=== PATIENT | female | born 1945 | race Caucasian/White ===

== ENCOUNTER 2016-08-13 09:23 | Observation (INO) ==
[2016-08-13] MEDS ORDERED: Aspirin 81 MG TAB.CHEW PO ONE (10:05)
--- NOTE | 2016-08-13 10:11 | Emergency Department Note ---
Disposition Clinical Impression: Coronary artery disease, Chest pain, Elevated lipase, Frail elderly, Diabetes, Hyperlipidemia, Hypertension, Cardiomegaly, History of artificial heart valve, Elevated INR Disposition: Admitted As Inpatient Referrals: Chelita Sweeney CNP [Primary Care Provider] - Forms: ED Satisfaction Letter General Adult HPI - General Chief complaint: ED Chest Pain Stated complaint: Chest Pain Time Seen by Provider: 08/13/16 09:32 Source: patient Limitations: no limitations - History of Present Illness HPI Narrative: 70-year-old female history of coronary artery disease status post CABG and cardiac valve replacement on Coumadin and reports the emergency department complaining of chest pain which began yesterday. There is no history of cough or fever. No history of bleeding abdominal pain or vomiting. She had a few episodes of diarrhea which been nonbloody. There is no history of syncope or trauma or leg pain or swelling. The patient has had no problem moving her arms or legs independently. There is no history of fever. No acute back pain. The patient reports she usually does not have chest pain. She described the chest pain midsternal while she was active yesterday. It came back today. The patient has had some anxiety but denies any depressive features or suicidality or homicidality. There is no history of rash on the chest. No upper respiratory symptoms. There is no history of confusion. Onset (ago): hour(s) Pain Scale: 1 - Related Data Allergies Allergy/AdvReac Type Severity Reaction Status Date / Time iodine Allergy Hives Verified 08/13/16 09:38 codeine AdvReac Nausea Verified 08/13/16 09:39 All systems ED: reviewed and negative except as stated. Past Medical History - Past Medical History Medical history: Reports: CHF, coronary artery disease, diabetes, hyperlipidemia , hypertension Psychiatric history: Reports: no psych history - Social History Smoking Status: Never smoker Smokeless Tobacco Status: No Alcohol use: Reports: none Drug use: Reports: none Physical Exam - General Limitations: no limitations General appearance: alert - Head Head exam: atraumatic, normocephalic, normal inspection - Eye Eye exam: Present: normal appearance, PERRL, EOMI. Absent: conjunctival injection, miosis, mydriasis - ENT ENT exam: normal exam, normal oropharynx, mucous membranes moist, TM's normal bilaterally, normal external ear exam - Neck Neck exam: Present: normal inspection, full ROM, trachea midline - Chest Chest inspection: Present: symmetric chest wall rise. Absent: tenderness - Respiratory Respiratory exam: Present: normal lung sounds bilaterally. Absent: respiratory distress - Cardiovascular Cardiovascular exam: Present: normal rhythm, clicks, other (Mechanical heart sounds noted) - Abdominal Exam Abdominal exam: Present: soft, Non-Tender. Absent: tenderness, distention, guarding, rebound, rigidity, pulsatile mass - Extremities Exam Extremities exam: Present: normal inspection, full ROM. Absent: tenderness, normal capillary refill, pedal edema, joint swelling, calf tenderness - Expanded Lower Extremity Exam Neurovascular/Tendon exam: Absent: motor deficit, sensory deficit, tendon deficit, extremity cold to touch - Back Exam Back exam: Present: normal inspection, full ROM. Absent: tenderness, CVA tenderness (R), CVA tenderness (L), vertebral tenderness - Neurological Exam Neurological exam: Present: alert, oriented X3, CN II-XII intact. Absent: motor sensory deficit - Psychiatric Psychiatric exam: Present: normal affect, normal mood - Skin Skin exam: Present: warm, dry, intact, normal color. Absent: rash, cyanosis, diaphoresis, erythema, pallor, mottled Course Vital Signs Temperature 97.6 F 08/13/16 09:28 Pulse Rate 72 08/13/16 09:28 Respiratory Rate 18 08/13/16 09:28 Blood Pressure 200/111 08/13/16 09:28 O2 Sat by Pulse Oximetry 99 08/13/16 09:28 Temperature 97.6 F 08/13/16 09:28 Pulse Rate 58 08/13/16 12:25 Respiratory Rate 18 08/13/16 12:25 Blood Pressure 139/67 08/13/16 12:25 O2 Sat by Pulse Oximetry 98 08/13/16 12:25 Oxygen Delivery Oxygen Delivery Room Air Medical Decision Making - [facility] Narrative Medical decision making narrative: The patient is elderly, she has a history of coronary artery disease, valve replacement, she is anticoagulated, has a history of diabetes, hypertension, and hyperlipidemia and is experiencing chest pain. The patient was given aspirin as well. She does have a slightly elevated lipase the 300 range, but she denies abdominal pain. As a precaution a CT abdomen and pelvis was ordered to evaluate further. Given the patient's complaints and her significant risk factors for acute coronary syndrome, I think the patient should be admitted to the hospital and evaluated further. I reviewed the case with the hospitalist on -call who has accepted the patient to their care. The patient denies need for pain medication and appears to be pain free at this time. - Lab Data Lab results reviewed: Yes I reviewed the patient's lab results. Result diagrams: 08/13/16 09:54 08/13/16 09:54 Lab Results 08/13/16 08/13/16 08/13/16 Range/Units 09:54 09:54 09:54 WBC 7.9 (4.3-11.1) K/mcL RBC 4.80 (3.82-4.97) M/mcL Hgb 13.0 (11.5-15.4) g/dL Hct 41.3 (35.3-44.9) % MCV 86.0 (83.0-100.0) fL MCH 27.1 L (28.0-33.3) pg MCHC 31.5 L (31.6-35.5) g/dL RDW 15.0 H (11.5-14.5) % Plt Count 147 (140-400) K/mcL MPV 12.2 (9.4-12.4) fL Immature Gran % 0.4 (0-4) % Seg Neutrophils % 71.9 % Lymphocytes % 18.0 % Monocytes % 7.1 % Eosinophils % 2.1 % Basophils % 0.5 % Neutrophils # 5.7 (1.6-8.9) K/mcL Lymphocytes # 1.4 (0.6-4.6) K/mcL Monocytes # 0.6 (0.0-1.3) K/mcL Eosinophils # 0.2 (0.0-0.6) K/mcL Basophils # 0.0 (0.0-0.2) K/mcL PT 21.8 H (9.4-12.1) Seconds INR 2.0 APTT 49.7 H (26.0-36.0) Seconds Sodium 140 (136-145) mEq/L Potassium 4.2 (3.5-4.5) mEq/L Chloride 108 (98-109) mEq/L Carbon Dioxide 22 (19-29) mEq/L BUN 23 H (7-20) mg/dL Creatinine 0.85 (0.57-1.11) mg/dL Est GFR ( Amer) > 60 (> 60) Est GFR (Non-Af Amer) > 60 (> 60) BUN/Creatinine Ratio 27 H (6-26) Glucose 121 H (70-99) mg/dL Calculated Osmolality 295 (280-300) Lactic Acid (0.5-2.2) mmol/L Calcium 9.9 (8.6-10.8) mg/dL Total Bilirubin 0.6 (0.2-1.2) mg/dL Direct Bilirubin 0.2 (0.0-0.5) mg/dL Indirect Bilirubin 0.4 (0.0-1.2) mg/dL AST 17 (5-34) Units/L ALT 9 (0-55) Units/L Alkaline Phosphatase 89 (38-126) Units/L Troponin I (0-0.03) ng/mL C-Reactive Protein 0 (Less than 5) mg/L B-Natriuretic Peptide (0-100) pg/mL Serum Total Protein 7.2 (6.0-8.3) g/dL Albumin 3.9 (3.5-5.0) g/dL Globulin 3.3 (2.4-3.5) g/dL Albumin/Globulin Ratio 1.2 (1.1-2.2) Lipase 323 H (8-78) Units/L 08/13/16 08/13/16 08/13/16 Range/Units 09:54 09:54 10:51 WBC (4.3-11.1) K/mcL RBC (3.82-4.97) M/mcL Hgb (11.5-15.4) g/dL Hct (35.3-44.9) % MCV (83.0-100.0) fL MCH (28.0-33.3) pg MCHC (31.6-35.5) g/dL RDW (11.5-14.5) % Plt Count (140-400) K/mcL MPV (9.4-12.4) fL Immature Gran % (0-4) % Seg Neutrophils % % Lymphocytes % % Monocytes % % Eosinophils % % Basophils % % Neutrophils # (1.6-8.9) K/mcL Lymphocytes # (0.6-4.6) K/mcL Monocytes # (0.0-1.3) K/mcL Eosinophils # (0.0-0.6) K/mcL Basophils # (0.0-0.2) K/mcL PT (9.4-12.1) Seconds INR APTT (26.0-36.0) Seconds Sodium (136-145) mEq/L Potassium (3.5-4.5) mEq/L Chloride (98-109) mEq/L Carbon Dioxide (19-29) mEq/L BUN (7-20) mg/dL Creatinine (0.57-1.11) mg/dL Est GFR ( Amer) (> 60) Est GFR (Non-Af Amer) (> 60) BUN/Creatinine Ratio (6-26) Glucose (70-99) mg/dL Calculated Osmolality (280-300) Lactic Acid 1.1 (0.5-2.2) mmol/L Calcium (8.6-10.8) mg/dL Total Bilirubin (0.2-1.2) mg/dL Direct Bilirubin (0.0-0.5) mg/dL Indirect Bilirubin (0.0-1.2) mg/dL AST (5-34) Units/L ALT (0-55) Units/L Alkaline Phosphatase (38-126) Units/L Troponin I 0.01 (0-0.03) ng/mL C-Reactive Protein (Less than 5) mg/L B-Natriuretic Peptide 66 (0-100) pg/mL Serum Total Protein (6.0-8.3) g/dL Albumin (3.5-5.0) g/dL Globulin (2.4-3.5) g/dL Albumin/Globulin Ratio (1.1-2.2) Lipase (8-78) Units/L - Radiology Data Radiology results reviewed: Yes I reviewed the patient's radiology results.
[2016-08-13 10:14] LABS: Basophils % 0.5 %; Eosinophils # 0.2 K/mcL (0.0-0.6); Eosinophils % 2.1 %; Hematocrit 41.3 % (35.3-44.9); Immature Granulocytes % 0.4 % (0-4); Lymphocytes # 1.4 K/mcL (0.6-4.6); Mean Corpuscular HGB Conc 31.5 g/dL (31.6-35.5); Mean Corpuscular Hemoglobin 27.1 pg (28.0-33.3); Mean Platelet Volume 12.2 fL (9.4-12.4); Monocytes # 0.6 K/mcL (0.0-1.3); Monocytes % 7.1 %; Neutrophils # 5.7 K/mcL (1.6-8.9); Platelet Count 147 K/mcL (140-400); Segmented Neutrophils % 71.9 %
[2016-08-13 10:20] LABS: Prothrombin Time 21.8 Seconds (9.4-12.1)
[2016-08-13 10:22] LABS: Activated Partial Thrombo Time 49.7 Seconds (26.0-36.0)
[2016-08-13 10:27] LABS: Alanine Aminotransferase 9 Units/L (0-55); Albumin 3.9 g/dL (3.5-5.0); Albumin/Globulin Ratio 1.2 (1.1-2.2); Alkaline Phosphatase 89 Units/L (38-126); Aspartate Amino Transferase 17 Units/L (5-34); BUN/Creatinine Ratio 27 (6-26); Bilirubin,Direct 0.2 mg/dL (0.0-0.5); Bilirubin,Indirect 0.4 mg/dL (0.0-1.2); Bilirubin,Total 0.6 mg/dL (0.2-1.2); Blood Urea Nitrogen 23 mg/dL (7-20); C-Reactive Protein 0 mg/L (Less than 5); Calcium 9.9 mg/dL (8.6-10.8); Carbon Dioxide 22 mEq/L (19-29); Chloride 108 mEq/L (98-109); Globulin 3.3 g/dL (2.4-3.5); Glucose 121 mg/dL (70-99); Lipase 323 Units/L (8-78); Osmolality,Calculated 295 (280-300); Potassium 4.2 mEq/L (3.5-4.5); Sodium 140 mEq/L (136-145); Total Protein 7.2 g/dL (6.0-8.3); eGFR For African Americans > 60 (> 60); eGFR For Non-African Americans > 60 (> 60)
[2016-08-13] MEDS ORDERED: Naloxone 0.4 MG/ML INJ IVP PRN (14:32)
[2016-08-13] MEDS ORDERED: Nitroglycerin 0.4 MG TAB.SUBL SL PRN (14:34)
[2016-08-13] MEDS ORDERED: D5% in Water 1,000 ML IV PRN (14:35)
[2016-08-13] MEDS ORDERED: Dextrose Gel 15 GM PO PRN ×2 (14:35)
[2016-08-13] MEDS ORDERED: *HR* Dextrose 50 % in Water (Syg) 50 ML SYRINGE IVP PRN (14:35)
--- NOTE | 2016-08-13 14:44 | Internal Med History&Physical ---
Date of Encounter: 08/13/16 Time of Encounter: 14:00 Assessment and Plan (1) Chest pain Current visit: Yes Status: Acute -Given cardiac history will admit for observation to rule out ACS -given clinical presentation, concern for unstable angina. Consider cardiology eval if symptoms persist -trend serial TNI and EKG -EKG shows sinus rhythm with 61bpm with LVH however no prior EKG available on records for comparison -nitroglycerin prn chest pain -nuclear stress test in am -if nuclear stress test abnormal, consider cardiology eval -NPO after midnight for nuclear stress test in am Qualifiers: Chest pain type: unspecified Qualified Code(s): R07.9 - Chest pain, unspecified (2) On anticoagulant therapy Current visit: Yes Status: Chronic -ON coumadin for mechanical aortic valve -continue home coumadin dosing -monitor daily INR (goal INR:2-3) (3) Aortic valve replaced Current visit: Yes Status: Chronic continue home anticoagulation (4) CAD (coronary artery disease) Current visit: Yes Status: Acute Given current clinical presentation, will rule out ACS however concern for unstable Angina Consider cardiology eval if symptoms persist continue home medications Qualifiers: Coronary Disease-Associated Artery/Lesion type: unspecified vessel or lesion type [place] vs. transplanted heart: [place] heart Associated angina: angina presence unspecified Qualified Code(s): I25.10 - Atherosclerotic heart disease of [place] coronary artery without angina pectoris (5) Hypertension Current visit: Yes Status: Chronic BP within acceptable range continue home medications Qualifiers: Hypertension type: essential hypertension Qualified Code(s): I10 - Essential (primary) hypertension (6) Hyperlipidemia Current visit: Yes Status: Chronic continue home medications f/u lipid panel Qualifiers: Hyperlipidemia type: unspecified Qualified Code(s): E78.5 - Hyperlipidemia , unspecified (7) Diabetes mellitus Current visit: Yes Status: Chronic -will hold oral antihyperglycemic agents at this time -f/u HbA1C -started low dose sliding scale insulin algorithm -monitor fingerstick and blood glucose Qualifiers: Diabetes mellitus type: type 2 Diabetes mellitus complication status: with unspecified complications Diabetes mellitus technician terminal and repeater insulin use: without fpc use Qualified Code(s): E11.8 - Type 2 diabetes mellitus with unspecified complications (8) DVT prophylaxis Current visit: Yes Status: Acute anticoagulated with Coumadin Internal Medicine - H&P: HPI Chief complaint: chest pain Admitted From: Home Plans for Post Hospital Care: Home History of present illness: Ms. Horvath is a 70 year old female with PMH of CAD, s/p CABG x 2, s/p aortic valve replacement (mechanical valve, on anticoagulation), HTN, HLD, DM who presents to the ER for evaluation of chest pain x 2 days. 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 Initially she used to experience chest discomfort and shortness of breath with exertion, however since yesterday she has had midsternal chest pain with radiation to the left arm that has persisted despite rest. She states she has not seen a bag sealer since 2007 and had all her cardiac work up done at [facility]. She is currently trying to get a cardiology referral from her PCP at [facility]. At this time, patient is resting comfortably in bed and denies any chest pain or shortness of breath. Denies any headache, palpitations, abd pain, n/v, fever, or chills. Past Med Surg Social Fam HX - Past Medical History Medical history: CHF, coronary artery disease, diabetes, hyperlipidemia, hypertension Psychiatric history: no psych history - Social History Smoking Status: Never smoker Smokeless Tobacco Status: No Alcohol use: none Drug use: none Internal Medicine - H&P: Meds Amlodipine Besylate 2.5 mg PO DAILY 08/13/16 [History] Atorvastatin Calcium [Lipitor] 20 mg PO DAILY 08/13/16 [History] Metformin HCl [Glucophage] 1,000 mg PO BID 08/13/16 [History] Potassium Chloride [K-Tab ER] 20 meq PO BID 08/13/16 [History] Valsartan/Hydrochlorothiazide [Diovan Hct 160-25 mg Tablet] 1 tab PO DAILY 08/13 [History] Warfarin [Coumadin] 1 mg PO DAILY 08/13/16 [History] Allergies iodine Allergy (Verified 08/13/16 09:38) Hives codeine Adverse Reaction (Verified 08/13/16 09:39) Nausea All Systems PM: A 10-system review of systems was performed and is negative for pertinent findings except as documented above in the HPI. - Constitutional Constitutional: as per HPI - Constitutional Vitals: Temp Pulse Resp BP Pulse Ox 97.6 F 58 18 139/67 98 08/13/16 09:28 08/13/16 12:25 08/13/16 12:59 08/13/16 12:59 08/13/16 12:25 General appearance: Present: cooperative, A&O X 3, pleasant, no acute distress, answers questions appropriately - Head Head exam: Present: atraumatic, normocephalic - Eye Eye exam: Present: normal appearance, conjuntiva pink, sclera anicteric - Respiratory Respiratory exam: Present: CTAB, respiratory distress. Absent: wheezes - Cardiovascular Cardiovascular exam: Present: clicks (mechanical valve click), RRR, +S1, +S2 - GI/Abdominal GI/Abdominal exam: Present: normal bowel sounds, soft. Absent: distended, tenderness - Extremities Exam Extremities exam: Present: warm, radial pulses palpable and symetrical. Absent : calf tenderness, pedal edema, tenderness - Neurological Exam Neurological exam: Present: alert, oriented X3, no focal deficits - Psychiatric Psychiatric exam: Present: normal affect, normal mood Internal Med - H&P Results - Labs CBC & Chem 7: 08/13/16 09:54 08/13/16 09:54
[2016-08-13] MEDS ORDERED: *HR* Warfarin 1 MG TABLET PO SCH (18:00)
[2016-08-13] MEDS: Insulin LISPRO 300 UNITS/3 ML VIAL SQ SCH (18:18)
[2016-08-13] MEDS ORDERED: Insulin LISPRO 300 UNITS/3 ML VIAL SQ SCH (21:00)
[2016-08-14] MEDS ORDERED: Regadenoson 0.4 MG/5 ML SYRINGE IVP ONE (06:09)
[2016-08-14 06:15] LABS: INR 2.3; Prothrombin Time 25.4 Seconds (9.4-12.1)
[2016-08-14 06:17] LABS: Basophils # 0.1 K/mcL (0.0-0.2); Basophils % 0.7 %; Eosinophils # 0.3 K/mcL (0.0-0.6); Eosinophils % 3.5 %; Hematocrit 38.1 % (35.3-44.9); Hemoglobin 12.2 g/dL (11.5-15.4); Immature Granulocytes % 0.3 % (0-4); Lymphocytes # 1.9 K/mcL (0.6-4.6); Lymphocytes % 26.8 %; Mean Corpuscular Hemoglobin 27.4 pg (28.0-33.3); Mean Corpuscular Volume 85.4 fL (83.0-100.0); Mean Platelet Volume 12.8 fL (9.4-12.4); Monocytes # 0.7 K/mcL (0.0-1.3); Monocytes % 9.7 %; Neutrophils # 4.3 K/mcL (1.6-8.9); Platelet Count 139 K/mcL (140-400); Red Blood Count 4.46 M/mcL (3.82-4.97); Red Cell Distribution Width 15.2 % (11.5-14.5)
[2016-08-14 06:35] LABS: BUN/Creatinine Ratio 24 (6-26); Blood Urea Nitrogen 19 mg/dL (7-20); Calcium 9.3 mg/dL (8.6-10.8); Carbon Dioxide 25 mEq/L (19-29); Chloride 107 mEq/L (98-109); Chol/HDL Ratio 2.6 (0-4.9); Cholesterol 163 mg/dL (< 200); Glucose 83 mg/dL (70-99); HDL Cholesterol 63 mg/dL (40-59); LDL Cholesterol,Calculated 81 mg/dL (0-99); Magnesium 1.4 mg/dL (1.6-2.6); Osmolality,Calculated 293 (280-300); Sodium 141 mEq/L (136-145); Triglycerides 93 mg/dL (< 150); eGFR For African Americans > 60 (> 60); eGFR For Non-African Americans > 60 (> 60)
[2016-08-14] MEDS ORDERED: amLODIPine 5 MG TABLET PO SCH (09:00)
[2016-08-14] MEDS ORDERED: Valsartan 160 MG TABLET PO SCH (09:00)
[2016-08-14] MEDS ORDERED: hydroCHLOROthiazide 25 MG TABLET PO SCH (09:00)
[2016-08-14 11:14] VITALS: BP 118/67
--- NOTE | 2016-08-14 11:57 | Nuclear Medicine Stress Report ---
Regadenoson Nuclear Stress Name: Valeria Horvath Date of Study: 08/14/2016 Date: 1945 Ht: 61.0 in Medical Record#: [id number] Age: 70 Wt: 130.0 lb Gender: Female Order #: [id number] Location: [facility] Room: [facility] Supervising Provider: Agustin Aranda CNP Reading Physician: Norbert Jackson DO, FACJann, BJ HIGGINS Ordering Physician: Alyssa Belcher CNP Primary Care Physician: Chelita Sweeney CNP Stress Technologist: Delmy Nelson COATING AND BAKING OPERATOR, CCT Mixer Whipped Topping: Felipe Patton Indications: Chest pain Impression: Pharmacologic stress ECG is non-diagnostic for ischemia due to baseline ST-T changes and submaximal HR. Gated EF = 64%. Perfusion imaging was negative for ischemia or infarct. History: Hypertension Diabetes Hypercholesteremia History of Coronary Artery Bypass Surgery Stress Test Summary: Stress Test Type: Pharmacologic Regadenoson 0.4mg/5ml given IV Baseline Information: Initial Heart Rate: 80 Blood Pressure: 138/80 Stress Information: Test Terminated Due to (primary): As per protocol Maximum Blood Pressure: 166/80 Maximum Heart Rate: 92 Percent Maximum Heart Rate Achieved: 62 Double Product: [id number] METS Reached: 1 Symptoms: No chest symptoms Nuclear Summary: SPECT myocardial perfusion imaging using Tc99m Sestamibi given intravenously was performed at rest and following cardiac stress testing. The resting images were obtained following initial dose of 11.7 mCi. Following stress an additional dose of 33 mCi was given at peak exercise or 30 seconds post regadenoson infusion. Medication Given: Time Medication Dose Units Route Findings: Stress Note * Resting ECG demonstrated normal sinus rhythm, incomplete RBBB, and ST-T changes. * No baseline arrhythmias were noted. * Pharmacologic stress ECG is non-diagnostic for ischemia due to baseline ST-T changes and submaximal HR. * No arrhythmias were noted during stress. * Patient had no chest pain during stress. * Normal hemodynamic responses to pharmacologic stress. Study Quality * Study quality is average. Gated EF % * Gated EF = 64%. Left Ventricle * The left ventricle is not dilated. LVEDV = 88 mL. NORMALS * Normal wall motion. * Normal segmental perfusion in rest. * Normal segmental perfusion in stress. TID * No evidence of transient ischemic dilatation. TID ratio = 0.81. Lung Uptake * There is no evidence of increase lung uptake. Updated by Norbert Jackson DO, FACJann, GISELA, BJ on 08/14/2016 11:49:34 AM electronically signed on 08/14/2016 11:52:34 AM with status of Final
[2016-08-14] MEDS: Insulin LISPRO 300 UNITS/3 ML VIAL SQ SCH ×2 (11:59→12:07)
--- NOTE | 2016-08-14 15:38 | Discharge Summary ---
Date of Encounter: 08/14/16 Time of Encounter: 14:30 - Discharge Diagnosis (1) Chest pain Priority: Primary Status: Resolved Comments: Patient denied chest pain on day of discharge. Chest x-ray negative. Troponins negative. Stress test negative for ischemia or infarct. ACS ruled out. (2) Coronary artery disease Priority: Secondary Status: Chronic (3) DVT prophylaxis Priority: Primary Status: Acute Comments: Therapeutic on Coumadin, INR 2.3 (4) Elevated lipase Priority: Primary Status: Resolved Comments: Likely incidental finding, abdominal pelvic CT negative for acute processes. Patient denied abdominal pain throughout this admission and was able to tolerate a regular diet. (5) History of artificial heart valve Priority: Secondary Status: Chronic (6) Hyperlipidemia Priority: Secondary Status: Chronic Comments: Lipid panel unremarkable, recommend low-cholesterol diet and continuing her statin Qualifiers: Hyperlipidemia type: unspecified Qualified Code(s): E78.5 - Hyperlipidemia , unspecified (7) Hypertension Priority: Secondary Status: Chronic Comments: Controlled with the resumption of her regular home medications. Recommend daily blood pressure checks at home, keeping a log, and following up outpatient. (8) Diabetes mellitus Priority: Secondary Status: Chronic Comments: Controlled at home with an A1c of 6.0%. Recommend continued follow up outpatient. Qualifiers: Diabetes mellitus type: type 2 Diabetes mellitus complication status: with unspecified complications Diabetes mellitus ferry terminal supervisor insulin use: without ferry terminal supervisor use Qualified Code(s): E11.8 - Type 2 diabetes mellitus with unspecified complications (9) On anticoagulant therapy Priority: Secondary Status: Chronic - Discharge Medications Home Medications: Amlodipine Besylate 2.5 mg PO DAILY 08/13/16 [History] Atorvastatin Calcium [Lipitor] 20 mg PO DAILY 08/13/16 [History] Metformin HCl [Glucophage] 1,000 mg PO BID 08/13/16 [History] Potassium Chloride [K-Tab ER] 20 meq PO BID 08/13/16 [History] Valsartan/Hydrochlorothiazide [Diovan Hct 160-25 mg Tablet] 1 tab PO DAILY 08/13 [History] Warfarin [Coumadin] 1 mg PO DAILY 08/13/16 [History] Allergies/Adverse Reactions: Allergies iodine Allergy (Verified 08/13/16 09:38) Hives codeine Adverse Reaction (Verified 08/13/16 09:39) Nausea Procedures/tests Complete & Pending: Procedures Performed prior 72 hours Category Date Time Status NM luis perf SPECT multi [NM] Routine Exams 08/13/16 14:35 Taken SP pharm nuclear stress Routine Y 08/14/16 07:35 Completed Date of admission: 08/13/16 12:48 Primary care physician: Chelita Sweeney CNP Consults: 08/13/16 15:21 Consult to Showroom Sales Consultant [CONS] Routine Reason for SW Consult: financial concerns Discharging clinician: Alyssa Belcher Anticipated date of discharge: 08/14/16 - Patient Status Disposition: Home, Self-Care Condition: Good Functional capacity at discharge: independent ambulation Overall status at discharge: patient is back to baseline - Discharge Instructions Follow Up With: Chelita Sweeney CNP [Primary Care Provider] - 08/21/16 1:00 pm Additional Instructions: Follow-up with primary care provider as scheduled - Diet and Activity Activity: increase activity as tolerated Diet: diabetic diet, low fat, low cholesterol, low salt diet Hospital course: Ms. Horvath is a 70 year old female with past medical history of CAD status post CABG 2, status post aortic valve replacement mechanical valve on Coumadin, hypertension, hyperlipidemia, diabetes. Patient presented to the emergency department chief complaint chest pain 2 days. Patient stating pain was located midsternally and radiated to her left arm and persisted despite rest. Workup in the emergency department unremarkable except for an elevated lipase. Chest x-ray negative. Abdominal pelvic CT negative. Patient was admitted to the hospitalist service for further evaluation and management. Patient continued to deny pain throughout this admission. She denied abdominal pain. Repeat lipase normal, suspect lab error as there were no clinical signs of pancreatitis or acute abdominal processes. Hypertension was noted but patient became normotensive after the resumption of her regular home medications. Troponins negative. Stress test negative for ischemia or infarct. Acute coronary syndrome ruled out. She was discharged home in stable condition with close outpatient follow-up recommended. ITS Impressions Chest X-Ray 08/13/16 10:06 IMPRESSION: 1. No active pulmonary disease. 2. Cardiomegaly without overt failure. D/ / Bert Davis MD / Bert Davis MD Interpreting Provider: Bert Davis MD Abdomen/Pelvis CT 08/13/16 12:06 IMPRESSION: No radiologic findings to suggest acute pancreatitis. Atherosclerosis. Cholelithiasis without evidence of acute cholecystitis. D/ / Jessica Aragon MD / Jessica Aragon MD Interpreting Provider: Jessica Aragon MD Nuclear stress test impression: Pharmacologic stress ECG is nondiagnostic for ischemia due to baseline ST-T wave changes and submaximal heart rate. Gated ejection fraction equals 64%. Perfusion imaging was negative for ischemia or infarct. - Time Spent with Patient Total time spent providing and/or coordinating discharge services: - Constitutional Vitals: Temp Pulse Resp BP Pulse Ox 98.0 F 63 16 118/67 94 L 08/14/16 11:08 08/14/16 11:08 08/14/16 11:08 08/14/16 11:08 08/14/16 11:08 General appearance: Present: cooperative, A&O X 3, pleasant, no acute distress, answers questions appropriately - Head Head exam: Present: atraumatic, normocephalic - Eye Eye exam: Present: PERRL, conjuntiva pink, sclera anicteric Pupils: Present: PERRL - Neck Neck exam general surgery: Present: supple, trachea midline. Absent: lymphadenopathy - Respiratory Respiratory exam: Present: CTAB. Absent: accessory muscle use, rales, respiratory distress, rhonchi, wheezes - Cardiovascular Cardiovascular exam: Present: clicks, RRR, +S1, +S2. Absent: diastolic murmur, gallop, rubs, systolic murmur - GI/Abdominal GI/Abdominal exam: Present: normal bowel sounds, soft, no peritoneal signs. Absent: distended, tenderness - Extremities Exam Extremities exam: Present: warm, radial pulses palpable and symetrical. Absent : calf tenderness, cyanotic, pedal edema - Neurological Exam Neurological exam: Present: alert, CN II-XII intact, oriented X3, no focal deficits, strengths equal and symetr throughout. Absent: pronater drift, facial droop, speech deficit - Skin Skin exam: Present: dry, intact, normal color, warm
[2016-08-14] MEDS ORDERED: *HR* Warfarin 1 MG TABLET PO SCH (18:00)
--- NOTE | 2016-08-17 12:56 | Electrocardiograph Report ---
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
== END 2016-08-14 17:17 | disposition home or self-care (01) ==
LOC: EMEROO 09:23 → 3BNU 09:23
PROVIDERS: ADMIT Internal Medicine; ATTEND Nurse Practitioner Family

== ENCOUNTER 2020-03-15 22:08 | Inpatient (IN) ==
[2020-03-15] MEDS ORDERED: Aspirin 81 MG TAB.CHEW PO ONE (22:19)
[2020-03-15 22:58] LABS: Bilirubin,Urine Negative (Negative); Blood,Urine Negative (Negative); Clarity,Urine Clear (Clear); Color,Urine Colorless (Yellow); Glucose,Urine (UA) Normal (Normal); Ketones,Urine Negative (Negative); Leukocyte Esterase,Urine Negative (Negative); Nitrite,Urine Negative (Negative); Protein,Urine 30 mg/dL (Neg-Trace); RBC,Urine 0-3 per hpf (0-3); Specific Gravity,Urine 1.008 (1.010-1.025); Urobilinogen,Urine Normal (Normal); WBC,Urine 0-3 per hpf (0-3)
[2020-03-15 23:06] LABS: Activated Partial Thrombo Time 75.1 Seconds (26.0-36.0)
[2020-03-15 23:07] LABS: Basophils # 0.1 K/mcL (0.0-0.2); Basophils % 0.9 %; Eosinophils # 0.5 K/mcL (0.0-0.6); Eosinophils % 5.3 %; Hematocrit 43.1 % (35.3-44.9); Hemoglobin 13.3 g/dL (11.5-15.4); Immature Granulocytes % 0.3 % (0-4); Lymphocytes # 1.7 K/mcL (0.6-4.6); Lymphocytes % 19.1 %; Mean Corpuscular HGB Conc 30.9 g/dL (31.6-35.5); Mean Corpuscular Hemoglobin 27.3 pg (28.0-33.3); Mean Corpuscular Volume 88.5 fL (83.0-100.0); Mean Platelet Volume 12.1 fL (9.4-12.4); Monocytes # 0.7 K/mcL (0.0-1.3); Monocytes % 8.2 %; Neutrophils # 5.8 K/mcL (1.6-8.9); Platelet Count 186 K/mcL (140-400); Red Blood Count 4.87 M/mcL (3.82-4.97); Red Cell Distribution Width 14.3 % (11.5-14.5); Segmented Neutrophils % 66.2 %; White Blood Count 8.8 K/mcL (4.3-11.1)
[2020-03-15 23:16] LABS: Albumin 4.5 g/dL (3.5-5.7); Albumin/Globulin Ratio 1.5 (1.1-2.2); Bilirubin,Direct 0.2 mg/dL (0.0-0.2); Bilirubin,Indirect 0.5 mg/dL (0.0-1.0); Bilirubin,Total 0.7 mg/dL (0.3-1.0); Globulin 3.1 g/dL (2.4-3.5); Total Protein 7.6 g/dL (6.4-8.9)
[2020-03-15 23:18] LABS: INR 4.9; Prothrombin Time 55.5 Seconds (9.4-12.1)
[2020-03-15 23:25] LABS: BUN/Creatinine Ratio 24 (6-26); Blood Urea Nitrogen 15 mg/dL (8-23); Calcium 9.9 mg/dL (8.6-10.3); Carbon Dioxide 25 mEq/L (23-29); Chloride 106 mEq/L (98-107); Glucose 118 mg/dL (70-105); Osmolality,Calculated 296 (280-300); Potassium 4.1 mEq/L (3.5-5.1); Sodium 142 mEq/L (136-145); Troponin I 0.38 ng/mL (< 0.04); eGFR For African Americans > 60 (> 60); eGFR For Non-African Americans > 60 (> 60)
[2020-03-15] MEDS ORDERED: *HR* Heparin 5,000 UNIT/ML VIAL IVP ONE (23:38)
[2020-03-15] MEDS ORDERED: *HR* Heparin 5,000 UNIT/ML VIAL IVP PRN ×2 (23:38)
[2020-03-15] MEDS ORDERED: cefTRIAXone 1,000 MG in Water for inj. (sterile) 10 ML IVP ONE (23:39)
[2020-03-15] MEDS ORDERED: Heparin 25,000UNIT/250ML 1/2NS 25,000 UNIT/250 ML IV.SOLN IVC SCH (23:45)
[2020-03-15 23:52] LABS: Heparin anti-factor XA UFH 0.05 IU/mL (0.30-0.70)
[2020-03-16 00:46] LABS: Hematocrit 41.4 % (35.3-44.9); Mean Corpuscular HGB Conc 31.4 g/dL (31.6-35.5); Mean Corpuscular Hemoglobin 27.4 pg (28.0-33.3); Mean Corpuscular Volume 87.3 fL (83.0-100.0); Mean Platelet Volume 11.5 fL (9.4-12.4); Platelet Count 173 K/mcL (140-400); Red Blood Count 4.74 M/mcL (3.82-4.97); Red Cell Distribution Width 14.2 % (11.5-14.5); White Blood Count 11.2 K/mcL (4.3-11.1)
[2020-03-16 01:49] LABS: Adenovirus Not Detected (Not Detect); Bordetella Pertussis Not Detected (Not Detect); Chlamydophila pneumoniae Not Detected (Not Detect); Coronavirus 229E Not Detected (Not Detect); Coronavirus HKU1 Not Detected (Not Detect); Coronavirus NL63 Not Detected (Not Detect); Coronavirus OC43 Not Detected (Not Detect); Human Metapneumovirus Not Detected (Not Detect); Human Rhinovirus/Enterovirus Not Detected (Not Detect); Influenza A Subtype 2009 H1 Not Detected (Not Detect); Influenza B Not Detected (Not Detect); Parainfluenza Virus 1 Not Detected (Not Detect); Parainfluenza Virus 2 Not Detected (Not Detect); Parainfluenza Virus 3 Not Detected (Not Detect); Parainfluenza Virus 4 Not Detected (Not Detect); Respiratory Syncytial Virus Not Detected (Not Detect); SARS-CoV-2 Not Detected (Not Detect)
[2020-03-16 01:50] LABS: Mycoplasma pneumoniae Not Detected (Not Detect)
[2020-03-16] MEDS ORDERED: Naloxone 0.4 MG/ML INJ IVP PRN (02:21)
[2020-03-16] MEDS ORDERED: *HR* Dextrose 50 % in Water (Vial) 50 ML VIAL IVP PRN (02:30)
[2020-03-16] MEDS ORDERED: D5% in Water 1,000 ML IVC PRN (02:30)
[2020-03-16] MEDS ORDERED: Dextrose Gel 15 GM/37.5 ML TUBE PO PRN ×2 (02:30)
[2020-03-16] MEDS: Insulin LISPRO 300 UNITS/3 ML VIAL SQ SCH ×4 (06:33→21:21)
[2020-03-16 06:51] LABS: Basophils # 0.1 K/mcL (0.0-0.2); Basophils % 0.4 %; Eosinophils # 0.2 K/mcL (0.0-0.6); Eosinophils % 1.9 %; Hematocrit 39.6 % (35.3-44.9); Hemoglobin 12.5 g/dL (11.5-15.4); Immature Granulocytes % 0.3 % (0-4); Lymphocytes # 2.3 K/mcL (0.6-4.6); Lymphocytes % 18.9 %; Mean Corpuscular HGB Conc 31.6 g/dL (31.6-35.5); Mean Corpuscular Hemoglobin 27.6 pg (28.0-33.3); Mean Corpuscular Volume 87.4 fL (83.0-100.0); Mean Platelet Volume 11.5 fL (9.4-12.4); Monocytes # 0.8 K/mcL (0.0-1.3); Monocytes % 7.1 %; Neutrophils # 8.5 K/mcL (1.6-8.9); Platelet Count 161 K/mcL (140-400); Red Blood Count 4.53 M/mcL (3.82-4.97); Red Cell Distribution Width 14.3 % (11.5-14.5); Segmented Neutrophils % 71.4 %; White Blood Count 11.9 K/mcL (4.3-11.1)
[2020-03-16 06:54] LABS: INR 4.3
[2020-03-16 07:13] LABS: BUN/Creatinine Ratio 22 (6-26); Blood Urea Nitrogen 15 mg/dL (8-23); Calcium 9.4 mg/dL (8.6-10.3); Carbon Dioxide 25 mEq/L (23-29); Chloride 106 mEq/L (98-107); Chol/HDL Ratio 2.3 (0-4.9); Cholesterol 174 mg/dL (< 200); Glucose 117 mg/dL (70-105); HDL Cholesterol 77 mg/dL (40-59); LDL Cholesterol,Calculated 84 mg/dL (< 100); Magnesium 1.4 mg/dL (1.6-2.6); Osmolality,Calculated 292 (280-300); Phosphorous 3.3 mg/dL (2.7-4.5); Potassium 3.7 mEq/L (3.5-5.1); Sodium 140 mEq/L (136-145); Triglycerides 65 mg/dL (< 150); eGFR For African Americans > 60 (> 60); eGFR For Non-African Americans > 60 (> 60)
[2020-03-16 07:17] LABS: Activated Partial Thrombo Time 250.5 Seconds (26.0-36.0); Prothrombin Time 48.8 Seconds (9.4-12.1)
[2020-03-16 07:41] LABS: Troponin I 3.17 ng/mL (< 0.04)
[2020-03-16] MEDS ORDERED: Perflutren Lipid Microsphere 1.3 ML in 0.9 % Sodium Chloride 8.7 ML IVP PRN (08:00)
[2020-03-16] MEDS: Isosorbide MONOnitrate (24 HR) 30 MG TAB.ER.24H PO SCH (12:39)
[2020-03-16] MEDS: Aspirin Enteric Coated 81 MG Tablet PO SCH (12:40)
[2020-03-16] MEDS ORDERED: lisinopriL 10 MG TABLET PO SCH (13:00)
[2020-03-17 05:00] LABS: Hematocrit 40.2 % (35.3-44.9); Hemoglobin 12.4 g/dL (11.5-15.4); Mean Corpuscular HGB Conc 30.8 g/dL (31.6-35.5); Mean Corpuscular Hemoglobin 27.3 pg (28.0-33.3); Mean Corpuscular Volume 88.5 fL (83.0-100.0); Mean Platelet Volume 12.1 fL (9.4-12.4); Platelet Count 182 K/mcL (140-400); Red Blood Count 4.54 M/mcL (3.82-4.97); Red Cell Distribution Width 14.6 % (11.5-14.5); White Blood Count 9.7 K/mcL (4.3-11.1)
[2020-03-17 05:17] LABS: Calcium 9.1 mg/dL (8.6-10.3); Magnesium 2.1 mg/dL (1.6-2.6); Phosphorous 4.4 mg/dL (2.7-4.5); Potassium 3.9 mEq/L (3.5-5.1)
[2020-03-17 05:20] LABS: Activated Partial Thrombo Time 64.4 Seconds (26.0-36.0)
[2020-03-17 05:22] LABS: Prothrombin Time 45.2 Seconds (9.4-12.1)
[2020-03-17] MEDS: Aspirin Enteric Coated 81 MG Tablet PO SCH (09:14)
[2020-03-17] MEDS: Insulin LISPRO 300 UNITS/3 ML VIAL SQ SCH ×4 (09:14→21:03)
[2020-03-17] MEDS: Metoprolol XL (24 HR) Succ 25 MG TAB.ER.24H PO SCH (09:44)
[2020-03-17] MEDS: Isosorbide MONOnitrate (24 HR) 30 MG TAB.ER.24H PO SCH (09:44)
[2020-03-17] MEDS ORDERED: polyethylene glycoL 3350 17 GM POWD.PACK PO PRN (21:25)
[2020-03-18 03:13] LABS: Hematocrit 38.7 % (35.3-44.9); Hemoglobin 12.1 g/dL (11.5-15.4); Mean Corpuscular HGB Conc 31.3 g/dL (31.6-35.5); Mean Corpuscular Hemoglobin 27.4 pg (28.0-33.3); Mean Corpuscular Volume 87.6 fL (83.0-100.0); Mean Platelet Volume 12.2 fL (9.4-12.4); Platelet Count 172 K/mcL (140-400); Red Blood Count 4.42 M/mcL (3.82-4.97); Red Cell Distribution Width 14.5 % (11.5-14.5); White Blood Count 9.9 K/mcL (4.3-11.1)
[2020-03-18 03:20] LABS: INR 2.9; Prothrombin Time 33.4 Seconds (9.4-12.1)
[2020-03-18 03:23] LABS: Activated Partial Thrombo Time 54.8 Seconds (26.0-36.0)
[2020-03-18 03:33] LABS: BUN/Creatinine Ratio 33 (6-26); Blood Urea Nitrogen 31 mg/dL (8-23); Calcium 9.2 mg/dL (8.6-10.3); Carbon Dioxide 25 mEq/L (23-29); Chloride 107 mEq/L (98-107); Glucose 114 mg/dL (70-105); Magnesium 1.8 mg/dL (1.6-2.6); Osmolality,Calculated 295 (280-300); Potassium 4.1 mEq/L (3.5-5.1); Sodium 139 mEq/L (136-145); eGFR For African Americans > 60 (> 60); eGFR For Non-African Americans 59 (> 60)
[2020-03-18] MEDS: Insulin LISPRO 300 UNITS/3 ML VIAL SQ SCH ×4 (07:17→21:09)
[2020-03-18] MEDS: Isosorbide MONOnitrate (24 HR) 30 MG TAB.ER.24H PO SCH (07:36)
[2020-03-18] MEDS: Metoprolol XL (24 HR) Succ 25 MG TAB.ER.24H PO SCH (07:37)
[2020-03-18] MEDS: Aspirin Enteric Coated 81 MG Tablet PO SCH (07:37)
[2020-03-18] MEDS: lisinopriL 10 MG TABLET PO SCH (07:37)
[2020-03-18 12:16] LABS: Estimated Average Glucose 143 mg/dl; Hemoglobin A1C 6.6 %
[2020-03-19] MEDS: Nitroglycerin 0.4 MG TAB.SUBL SL PRN ×2 (02:00→23:06)
[2020-03-19 05:33] LABS: INR 2.4; Prothrombin Time 27.4 Seconds (9.4-12.1)
[2020-03-19 05:34] LABS: Hemoglobin 11.4 g/dL (11.5-15.4); Mean Corpuscular HGB Conc 31.7 g/dL (31.6-35.5); Mean Corpuscular Hemoglobin 27.9 pg (28.0-33.3); Mean Corpuscular Volume 88.2 fL (83.0-100.0); Mean Platelet Volume 11.4 fL (9.4-12.4); Platelet Count 149 K/mcL (140-400); Red Blood Count 4.08 M/mcL (3.82-4.97); Red Cell Distribution Width 14.3 % (11.5-14.5); White Blood Count 9.1 K/mcL (4.3-11.1)
[2020-03-19 05:37] LABS: Activated Partial Thrombo Time 47.7 Seconds (26.0-36.0)
[2020-03-19 05:57] LABS: BUN/Creatinine Ratio 25 (6-26); Blood Urea Nitrogen 21 mg/dL (8-23); Carbon Dioxide 24 mEq/L (23-29); Chloride 109 mEq/L (98-107); Glucose 122 mg/dL (70-105); Magnesium 1.8 mg/dL (1.6-2.6); Osmolality,Calculated 292 (280-300); Phosphorous 3.8 mg/dL (2.7-4.5); Potassium 4.1 mEq/L (3.5-5.1); Sodium 139 mEq/L (136-145); eGFR For African Americans > 60 (> 60); eGFR For Non-African Americans > 60 (> 60)
[2020-03-19] MEDS: Insulin LISPRO 300 UNITS/3 ML VIAL SQ SCH ×4 (07:30→20:09)
[2020-03-19] MEDS: lisinopriL 10 MG TABLET PO SCH (07:41)
[2020-03-19] MEDS: Aspirin Enteric Coated 81 MG Tablet PO SCH (07:41)
[2020-03-19] MEDS: Metoprolol XL (24 HR) Succ 25 MG TAB.ER.24H PO SCH (07:42)
[2020-03-19] MEDS: Isosorbide MONOnitrate (24 HR) 30 MG TAB.ER.24H PO SCH (07:42)
[2020-03-19] MEDS ORDERED: Isosorbide MONOnitrate (24 HR) 30 MG TAB.ER.24H PO ONE (11:30)
[2020-03-19] MEDS ORDERED: predniSONE 20 MG TABLET PO SCH (21:00)
[2020-03-20] MEDS ORDERED: *HR* Heparin 5,000 UNIT/ML VIAL IVP ONE ×2 (00:36→13:28)
[2020-03-20] MEDS ORDERED: *HR* Heparin 5,000 UNIT/ML VIAL IVP PRN ×4 (00:36→13:28)
[2020-03-20] MEDS ORDERED: Heparin 25,000UNIT/250ML 1/2NS 25,000 UNIT/250 ML IV.SOLN IVC SCH (00:45)
[2020-03-20 01:08] LABS: Hematocrit 35.2 % (35.3-44.9); Hemoglobin 11.1 g/dL (11.5-15.4); Mean Corpuscular HGB Conc 31.5 g/dL (31.6-35.5); Mean Corpuscular Hemoglobin 28.2 pg (28.0-33.3); Mean Corpuscular Volume 89.6 fL (83.0-100.0); Mean Platelet Volume 12.3 fL (9.4-12.4); Platelet Count 157 K/mcL (140-400); Red Blood Count 3.93 M/mcL (3.82-4.97); Red Cell Distribution Width 14.4 % (11.5-14.5); White Blood Count 10.6 K/mcL (4.3-11.1)
[2020-03-20 01:16] LABS: INR 1.8
[2020-03-20 01:18] LABS: Activated Partial Thrombo Time 42.7 Seconds (26.0-36.0); BUN/Creatinine Ratio 35 (6-26); Blood Urea Nitrogen 31 mg/dL (8-23); Calcium 8.9 mg/dL (8.6-10.3); Carbon Dioxide 24 mEq/L (23-29); Chloride 106 mEq/L (98-107); Glucose 242 mg/dL (70-105); Magnesium 1.7 mg/dL (1.6-2.6); Osmolality,Calculated 299 (280-300); Phosphorous 2.8 mg/dL (2.7-4.5); Potassium 4.1 mEq/L (3.5-5.1); Sodium 137 mEq/L (136-145); eGFR For African Americans > 60 (> 60); eGFR For Non-African Americans > 60 (> 60)
[2020-03-20] MEDS: Metoprolol XL (24 HR) Succ 25 MG TAB.ER.24H PO SCH (09:32)
[2020-03-20] MEDS: Aspirin Enteric Coated 81 MG Tablet PO SCH (09:32)
[2020-03-20] MEDS: Isosorbide MONOnitrate (24 HR) 60 MG TAB.ER.24H PO SCH (09:32)
[2020-03-20] MEDS: Insulin LISPRO 300 UNITS/3 ML VIAL SQ SCH ×4 (09:32→20:16)
[2020-03-20] MEDS: lisinopriL 10 MG TABLET PO SCH (09:32)
[2020-03-20] MEDS: Heparin 25,000UNIT/250ML 1/2NS 25,000 UNIT/250 ML IV.SOLN IVC SCH (14:24)
[2020-03-20 14:42] LABS: Hematocrit 34.8 % (35.3-44.9); Hemoglobin 10.8 g/dL (11.5-15.4); Mean Corpuscular Hemoglobin 27.4 pg (28.0-33.3); Mean Corpuscular Volume 88.3 fL (83.0-100.0); Mean Platelet Volume 12.3 fL (9.4-12.4); Platelet Count 167 K/mcL (140-400); Red Blood Count 3.94 M/mcL (3.82-4.97); Red Cell Distribution Width 14.5 % (11.5-14.5); White Blood Count 11.2 K/mcL (4.3-11.1)
[2020-03-20 14:43] LABS: Heparin anti-factor XA UFH 0.48 IU/mL (0.30-0.70); INR 1.8; Prothrombin Time 20.4 Seconds (9.4-12.1)
[2020-03-20] MEDS ORDERED: Nitroglycerin 0.4 MG TAB.SUBL SL PRN (16:59)
[2020-03-20] MEDS: predniSONE 20 MG TABLET PO SCH (20:20)
[2020-03-20] MEDS ORDERED: Morphine Sulfate 2 MG/ML SYRINGE IVP ONE (22:44)
[2020-03-21 04:50] LABS: Basophils % 0.2 %; Hematocrit 36.2 % (35.3-44.9); Hemoglobin 11.2 g/dL (11.5-15.4); Immature Granulocytes % 0.8 % (0-4); Lymphocytes # 1.5 K/mcL (0.6-4.6); Lymphocytes % 11.7 %; Mean Corpuscular HGB Conc 30.9 g/dL (31.6-35.5); Mean Corpuscular Hemoglobin 27.1 pg (28.0-33.3); Mean Corpuscular Volume 87.7 fL (83.0-100.0); Mean Platelet Volume 12.1 fL (9.4-12.4); Monocytes # 0.2 K/mcL (0.0-1.3); Monocytes % 1.3 %; Neutrophils # 10.8 K/mcL (1.6-8.9); Platelet Count 175 K/mcL (140-400); Red Blood Count 4.13 M/mcL (3.82-4.97); Red Cell Distribution Width 14.6 % (11.5-14.5); White Blood Count 12.6 K/mcL (4.3-11.1)
[2020-03-21 05:03] LABS: INR 1.6; Prothrombin Time 17.8 Seconds (9.4-12.1)
[2020-03-21 05:07] LABS: Activated Partial Thrombo Time 90.8 Seconds (26.0-36.0)
[2020-03-21 05:11] LABS: % Iron Saturation 11 % (15-50); BUN/Creatinine Ratio 36 (6-26); Blood Urea Nitrogen 29 mg/dL (8-23); Calcium 9.2 mg/dL (8.6-10.3); Carbon Dioxide 22 mEq/L (23-29); Chloride 109 mEq/L (98-107); Glucose 193 mg/dL (70-105); Iron 46 mcg/dL (50-170); Magnesium 1.8 mg/dL (1.6-2.6); Osmolality,Calculated 301 (280-300); Potassium 4.3 mEq/L (3.5-5.1); Sodium 140 mEq/L (136-145); Transferrin 289 mg/dL (203-362); eGFR For African Americans > 60 (> 60); eGFR For Non-African Americans > 60 (> 60)
[2020-03-21 05:30] LABS: Ferritin 19 ng/mL (10-120)
[2020-03-21 05:36] LABS: Folate 20.6 ng/mL (3.0-16.0)
[2020-03-21] MEDS ORDERED: Iron Sucrose Complex 250 MG in 0.9 % Sodium Chloride 250 ML IVPB ONE (07:17)
[2020-03-21] MEDS: Insulin LISPRO 300 UNITS/3 ML VIAL SQ SCH ×3 (08:42→17:23)
[2020-03-21] MEDS: Aspirin Enteric Coated 81 MG Tablet PO SCH (08:56)
[2020-03-21] MEDS: Isosorbide MONOnitrate (24 HR) 60 MG TAB.ER.24H PO SCH (08:56)
[2020-03-21] MEDS: lisinopriL 10 MG TABLET PO SCH (08:56)
[2020-03-21] MEDS: Metoprolol XL (24 HR) Succ 25 MG TAB.ER.24H PO SCH (08:56)
[2020-03-21] MEDS ORDERED: predniSONE 20 MG TABLET PO ONE (09:00)
[2020-03-21] MEDS ORDERED: ISOVUE-370 200 ML INFUS..BTL ONE (14:46)
[2020-03-21] MEDS ORDERED: 0.9 % Sodium Chloride 1,000 ML ONE ×2 (14:46→20:24)
[2020-03-21] MEDS ORDERED: Heparin 1,000 UNITS/500 mL 500 ML ONE (14:46)
[2020-03-21] MEDS ORDERED: *HR* Heparin 10,000 UNIT/10 ML VIAL ONE (14:46)
[2020-03-21] MEDS ORDERED: Nitroglycerin 1,000 MCG/10 ML VIAL IV ONE (14:47)
[2020-03-21] MEDS ORDERED: *HR* FentaNYL (PF) 100 MCG/2 ML VIAL ONE (15:06)
[2020-03-21] MEDS ORDERED: *HR* Midazolam HCl 2 MG/2 ML VIAL ONE (15:06)
[2020-03-21] MEDS ORDERED: methylPREDNISolone 125 MG/2 ML VIAL ONE (15:12)
[2020-03-21] MEDS ORDERED: *HR* Atropine Sulfate 1 MG/10 ML SYRINGE ONE (20:20)
[2020-03-22] MEDS: predniSONE 20 MG TABLET PO SCH ×2 (00:42→20:27)
[2020-03-22] MEDS: Insulin LISPRO 300 UNITS/3 ML VIAL SQ SCH ×5 (00:42→20:25)
[2020-03-22 02:47] LABS: Basophils % 0.2 %; Hematocrit 33.5 % (35.3-44.9); Hemoglobin 10.6 g/dL (11.5-15.4); Immature Granulocytes % 0.8 % (0-4); Lymphocytes # 1.4 K/mcL (0.6-4.6); Lymphocytes % 10.4 %; Mean Corpuscular HGB Conc 31.6 g/dL (31.6-35.5); Mean Corpuscular Hemoglobin 28.1 pg (28.0-33.3); Mean Corpuscular Volume 88.9 fL (83.0-100.0); Mean Platelet Volume 12.1 fL (9.4-12.4); Monocytes # 0.9 K/mcL (0.0-1.3); Monocytes % 7.2 %; Neutrophils # 10.6 K/mcL (1.6-8.9); Platelet Count 181 K/mcL (140-400); Red Blood Count 3.77 M/mcL (3.82-4.97); Red Cell Distribution Width 14.9 % (11.5-14.5); Segmented Neutrophils % 81.4 %
[2020-03-22 02:59] LABS: BUN/Creatinine Ratio 34 (6-26); Blood Urea Nitrogen 31 mg/dL (8-23); Carbon Dioxide 24 mEq/L (23-29); Chloride 109 mEq/L (98-107); Glucose 155 mg/dL (70-105); Magnesium 1.9 mg/dL (1.6-2.6); Osmolality,Calculated 302 (280-300); Potassium 4.3 mEq/L (3.5-5.1); Sodium 141 mEq/L (136-145); eGFR For African Americans > 60 (> 60); eGFR For Non-African Americans > 60 (> 60)
[2020-03-22] MEDS: Heparin 25,000UNIT/250ML 1/2NS 25,000 UNIT/250 ML IV.SOLN IVC SCH (04:09)
[2020-03-22] MEDS: lisinopriL 10 MG TABLET PO SCH (08:32)
[2020-03-22] MEDS: Aspirin Enteric Coated 81 MG Tablet PO SCH (08:32)
[2020-03-22] MEDS: Metoprolol XL (24 HR) Succ 25 MG TAB.ER.24H PO SCH (08:32)
[2020-03-22] MEDS: Isosorbide MONOnitrate (24 HR) 60 MG TAB.ER.24H PO SCH (08:32)
[2020-03-22 11:00] LABS: Hematocrit 35.7 % (35.3-44.9); Hemoglobin 11.2 g/dL (11.5-15.4)
[2020-03-22] MEDS: amLODIPine 5 MG TABLET PO SCH (11:29)
[2020-03-23] MEDS: Heparin 25,000UNIT/250ML 1/2NS 25,000 UNIT/250 ML IV.SOLN IVC SCH ×2 (01:26→03:22)
[2020-03-23 02:40] LABS: Basophils # 0.1 K/mcL (0.0-0.2); Basophils % 0.5 %; Eosinophils % 0.2 %; Hematocrit 32.4 % (35.3-44.9); Hemoglobin 10.2 g/dL (11.5-15.4); Immature Granulocytes % 1.4 % (0-4); Lymphocytes # 1.3 K/mcL (0.6-4.6); Lymphocytes % 11.9 %; Mean Corpuscular HGB Conc 31.5 g/dL (31.6-35.5); Mean Corpuscular Hemoglobin 28.1 pg (28.0-33.3); Mean Corpuscular Volume 89.3 fL (83.0-100.0); Mean Platelet Volume 12.4 fL (9.4-12.4); Monocytes # 0.4 K/mcL (0.0-1.3); Monocytes % 3.9 %; Neutrophils # 8.7 K/mcL (1.6-8.9); Platelet Count 161 K/mcL (140-400); Red Blood Count 3.63 M/mcL (3.82-4.97); Red Cell Distribution Width 15.1 % (11.5-14.5); Segmented Neutrophils % 82.1 %; White Blood Count 10.6 K/mcL (4.3-11.1)
[2020-03-23 03:01] LABS: BUN/Creatinine Ratio 31 (6-26); Blood Urea Nitrogen 27 mg/dL (8-23); Calcium 8.8 mg/dL (8.6-10.3); Carbon Dioxide 23 mEq/L (23-29); Chloride 108 mEq/L (98-107); Glucose 162 mg/dL (70-105); Magnesium 1.9 mg/dL (1.6-2.6); Osmolality,Calculated 293 (280-300); Potassium 4.6 mEq/L (3.5-5.1); Sodium 137 mEq/L (136-145); eGFR For African Americans > 60 (> 60); eGFR For Non-African Americans > 60 (> 60)
[2020-03-23] MEDS: Metoprolol XL (24 HR) Succ 25 MG TAB.ER.24H PO SCH (07:30)
[2020-03-23] MEDS: Isosorbide MONOnitrate (24 HR) 60 MG TAB.ER.24H PO SCH (07:34)
[2020-03-23] MEDS: lisinopriL 10 MG TABLET PO SCH (07:34)
[2020-03-23] MEDS: Insulin LISPRO 300 UNITS/3 ML VIAL SQ SCH ×4 (07:35→19:52)
[2020-03-23] MEDS: amLODIPine 5 MG TABLET PO SCH (07:35)
[2020-03-23] MEDS: Aspirin Enteric Coated 81 MG Tablet PO SCH (07:35)
[2020-03-23] MEDS: predniSONE 20 MG TABLET PO SCH (19:51)
[2020-03-24 02:29] LABS: Basophils # 0.1 K/mcL (0.0-0.2); Basophils % 0.4 %; Eosinophils % 0.2 %; Hematocrit 30.7 % (35.3-44.9); Hemoglobin 9.7 g/dL (11.5-15.4); Immature Granulocytes % 2.3 % (0-4); Lymphocytes # 1.5 K/mcL (0.6-4.6); Mean Corpuscular HGB Conc 31.6 g/dL (31.6-35.5); Mean Corpuscular Hemoglobin 28.1 pg (28.0-33.3); Mean Platelet Volume 12.7 fL (9.4-12.4); Monocytes # 0.5 K/mcL (0.0-1.3); Monocytes % 4.3 %; Neutrophils # 10.1 K/mcL (1.6-8.9); Nucleated Red Blood Cells 0.2 /100 WBC (0); Platelet Count 166 K/mcL (140-400); Red Blood Count 3.45 M/mcL (3.82-4.97); Red Cell Distribution Width 15.1 % (11.5-14.5); Segmented Neutrophils % 80.8 %; White Blood Count 12.4 K/mcL (4.3-11.1)
[2020-03-24 03:09] LABS: BUN/Creatinine Ratio 39 (6-26); Blood Urea Nitrogen 32 mg/dL (8-23); Calcium 8.5 mg/dL (8.6-10.3); Carbon Dioxide 21 mEq/L (23-29); Chloride 107 mEq/L (98-107); Glucose 199 mg/dL (70-105); Magnesium 1.8 mg/dL (1.6-2.6); Osmolality,Calculated 294 (280-300); Potassium 4.6 mEq/L (3.5-5.1); Sodium 136 mEq/L (136-145); eGFR For African Americans > 60 (> 60); eGFR For Non-African Americans > 60 (> 60)
[2020-03-24] MEDS: Insulin LISPRO 300 UNITS/3 ML VIAL SQ SCH ×4 (07:03→20:51)
[2020-03-24] MEDS: Metoprolol XL (24 HR) Succ 25 MG TAB.ER.24H PO SCH (07:22)
[2020-03-24] MEDS: Isosorbide MONOnitrate (24 HR) 60 MG TAB.ER.24H PO SCH (07:30)
[2020-03-24] MEDS: Aspirin Enteric Coated 81 MG Tablet PO SCH (07:30)
[2020-03-24] MEDS: lisinopriL 10 MG TABLET PO SCH (07:31)
[2020-03-24] MEDS: amLODIPine 5 MG TABLET PO SCH (07:31)
[2020-03-24] MEDS ORDERED: MethylPREDNISolone 40 MG/ML VIAL IVP ONE (10:00)
[2020-03-24] MEDS ORDERED: 0.9 % Sodium Chloride 2,000 ML ONE (10:16)
[2020-03-24] MEDS ORDERED: Heparin 1,000 UNITS/500 mL 500 ML ONE ×2 (10:17→11:51)
[2020-03-24] MEDS ORDERED: *HR* Heparin 10,000 UNIT/10 ML VIAL ONE (10:17)
[2020-03-24] MEDS ORDERED: Nitroglycerin 1,000 MCG/10 ML VIAL IV ONE (10:17)
[2020-03-24] MEDS ORDERED: ISOVUE-370 200 ML INFUS..BTL ONE (10:17)
[2020-03-24] MEDS ORDERED: *HR* Midazolam HCl 2 MG/2 ML VIAL ONE (10:58)
[2020-03-24] MEDS ORDERED: Warfarin perPT PO PRN (18:00)
[2020-03-24] MEDS ORDERED: *HR* Warfarin 1 MG TABLET PO ONE (18:00)
[2020-03-24] MEDS: predniSONE 20 MG TABLET PO SCH (20:50)
[2020-03-25 00:37] LABS: Hematocrit 29.9 % (35.3-44.9); Hemoglobin 9.5 g/dL (11.5-15.4); Mean Corpuscular HGB Conc 31.8 g/dL (31.6-35.5); Mean Corpuscular Hemoglobin 28.3 pg (28.0-33.3); Mean Platelet Volume 12.2 fL (9.4-12.4); Platelet Count 181 K/mcL (140-400); Red Blood Count 3.36 M/mcL (3.82-4.97); Red Cell Distribution Width 15.4 % (11.5-14.5); White Blood Count 14.2 K/mcL (4.3-11.1)
[2020-03-25 00:42] LABS: INR 1.1; Prothrombin Time 12.3 Seconds (9.4-12.1)
[2020-03-25] MEDS: Heparin 25,000UNIT/250ML 1/2NS 25,000 UNIT/250 ML IV.SOLN IVC SCH ×2 (00:50→21:23)
[2020-03-25 00:56] LABS: BUN/Creatinine Ratio 36 (6-26); Blood Urea Nitrogen 30 mg/dL (8-23); Calcium 8.7 mg/dL (8.6-10.3); Carbon Dioxide 23 mEq/L (23-29); Chloride 109 mEq/L (98-107); Glucose 119 mg/dL (70-105); Osmolality,Calculated 295 (280-300); Potassium 4.2 mEq/L (3.5-5.1); Sodium 139 mEq/L (136-145); eGFR For African Americans > 60 (> 60); eGFR For Non-African Americans > 60 (> 60)
[2020-03-25] MEDS: Isosorbide MONOnitrate (24 HR) 60 MG TAB.ER.24H PO SCH (09:28)
[2020-03-25] MEDS: Metoprolol XL (24 HR) Succ 25 MG TAB.ER.24H PO SCH (09:28)
[2020-03-25] MEDS: predniSONE 20 MG TABLET PO SCH (09:28)
[2020-03-25] MEDS: amLODIPine 5 MG TABLET PO SCH (09:28)
[2020-03-25] MEDS: lisinopriL 10 MG TABLET PO SCH (09:28)
[2020-03-25] MEDS: Aspirin Enteric Coated 81 MG Tablet PO SCH (09:28)
[2020-03-25] MEDS: Insulin LISPRO 300 UNITS/3 ML VIAL SQ SCH ×4 (09:29→21:22)
[2020-03-25] MEDS ORDERED: amLODIPine 5 MG TABLET PO ONE (10:15)
[2020-03-25] MEDS ORDERED: *HR* Warfarin 1 MG TABLET PO ONE (18:00)
[2020-03-26 07:08] LABS: Hematocrit 30.1 % (35.3-44.9); Hemoglobin 9.3 g/dL (11.5-15.4); Mean Corpuscular HGB Conc 30.9 g/dL (31.6-35.5); Mean Corpuscular Volume 93.8 fL (83.0-100.0); Mean Platelet Volume 12.1 fL (9.4-12.4); Platelet Count 181 K/mcL (140-400); Red Blood Count 3.21 M/mcL (3.82-4.97); Red Cell Distribution Width 15.9 % (11.5-14.5); White Blood Count 17.5 K/mcL (4.3-11.1)
[2020-03-26 07:15] LABS: INR 1.2; Prothrombin Time 13.7 Seconds (9.4-12.1)
[2020-03-26 07:33] LABS: BUN/Creatinine Ratio 30 (6-26); Blood Urea Nitrogen 28 mg/dL (8-23); Calcium 8.4 mg/dL (8.6-10.3); Carbon Dioxide 20 mEq/L (23-29); Chloride 111 mEq/L (98-107); Glucose 98 mg/dL (70-105); Osmolality,Calculated 293 (280-300); Sodium 139 mEq/L (136-145); eGFR For African Americans > 60 (> 60); eGFR For Non-African Americans 58 (> 60)
[2020-03-26] MEDS: Insulin LISPRO 300 UNITS/3 ML VIAL SQ SCH ×4 (08:45→20:51)
[2020-03-26] MEDS: Metoprolol XL (24 HR) Succ 25 MG TAB.ER.24H PO SCH (08:58)
[2020-03-26] MEDS: lisinopriL 10 MG TABLET PO SCH (08:59)
[2020-03-26] MEDS: amLODIPine 5 MG TABLET PO SCH (08:59)
[2020-03-26] MEDS: Aspirin Enteric Coated 81 MG Tablet PO SCH (08:59)
[2020-03-26] MEDS: Isosorbide MONOnitrate (24 HR) 60 MG TAB.ER.24H PO SCH (09:00)
[2020-03-26] MEDS: predniSONE 20 MG TABLET PO SCH (09:00)
[2020-03-26] MEDS ORDERED: *HR* Warfarin 2 MG TABLET PO ONE (18:00)
[2020-03-26] MEDS: Heparin 25,000UNIT/250ML 1/2NS 25,000 UNIT/250 ML IV.SOLN IVC SCH (20:59)
[2020-03-27 06:59] LABS: INR 1.3; Prothrombin Time 14.9 Seconds (9.4-12.1)
[2020-03-27] MEDS: Insulin LISPRO 300 UNITS/3 ML VIAL SQ SCH ×4 (07:41→20:10)
[2020-03-27 07:49] LABS: BUN/Creatinine Ratio 32 (6-26); Blood Urea Nitrogen 27 mg/dL (8-23); Calcium 8.5 mg/dL (8.6-10.3); Carbon Dioxide 24 mEq/L (23-29); Chloride 111 mEq/L (98-107); Glucose 97 mg/dL (70-105); Hematocrit 29.5 % (35.3-44.9); Mean Corpuscular HGB Conc 30.5 g/dL (31.6-35.5); Mean Corpuscular Hemoglobin 28.1 pg (28.0-33.3); Mean Corpuscular Volume 92.2 fL (83.0-100.0); Mean Platelet Volume 12.1 fL (9.4-12.4); Osmolality,Calculated 295 (280-300); Platelet Count 165 K/mcL (140-400); Red Cell Distribution Width 16.4 % (11.5-14.5); Sodium 140 mEq/L (136-145); White Blood Count 14.1 K/mcL (4.3-11.1); eGFR For African Americans > 60 (> 60); eGFR For Non-African Americans > 60 (> 60)
[2020-03-27 08:03] LABS: Phosphorous 3.6 mg/dL (2.7-4.5)
[2020-03-27] MEDS: Aspirin Enteric Coated 81 MG Tablet PO SCH (08:40)
[2020-03-27] MEDS: predniSONE 10 MG TABLET PO SCH (08:40)
[2020-03-27] MEDS: Isosorbide MONOnitrate (24 HR) 60 MG TAB.ER.24H PO SCH (08:40)
[2020-03-27] MEDS: lisinopriL 10 MG TABLET PO SCH (08:40)
[2020-03-27] MEDS: amLODIPine 5 MG TABLET PO SCH (08:40)
[2020-03-27] MEDS: Metoprolol XL (24 HR) Succ 25 MG TAB.ER.24H PO SCH (08:41)
[2020-03-27 10:08] LABS: Bilirubin,Urine Negative (Negative); Blood,Urine Negative (Negative); Clarity,Urine Clear (Clear); Color,Urine Colorless (Yellow); Glucose,Urine (UA) Normal (Normal); Ketones,Urine Negative (Negative); Leukocyte Esterase,Urine Negative (Negative); Nitrite,Urine Negative (Negative); PH,Urine 6.5 pH Units (5.0-8.0); Protein,Urine Negative (Neg-Trace); Specific Gravity,Urine 1.008 (1.010-1.025); Urobilinogen,Urine Normal (Normal)
[2020-03-27] MEDS: Heparin 25,000UNIT/250ML 1/2NS 25,000 UNIT/250 ML IV.SOLN IVC SCH (12:48)
[2020-03-27] MEDS ORDERED: *HR* Warfarin 2 MG TABLET PO ONE (18:00)
[2020-03-28 07:05] LABS: Hematocrit 30.7 % (35.3-44.9); Hemoglobin 9.5 g/dL (11.5-15.4); Mean Corpuscular HGB Conc 30.9 g/dL (31.6-35.5); Mean Corpuscular Hemoglobin 27.9 pg (28.0-33.3); Platelet Count 173 K/mcL (140-400); Red Blood Count 3.41 M/mcL (3.82-4.97); Red Cell Distribution Width 16.7 % (11.5-14.5)
[2020-03-28 07:07] LABS: INR 1.6; Prothrombin Time 18.4 Seconds (9.4-12.1)
[2020-03-28] MEDS: Insulin LISPRO 300 UNITS/3 ML VIAL SQ SCH ×4 (07:14→22:34)
[2020-03-28] MEDS: amLODIPine 5 MG TABLET PO SCH (07:26)
[2020-03-28] MEDS: Aspirin Enteric Coated 81 MG Tablet PO SCH (07:26)
[2020-03-28] MEDS: predniSONE 10 MG TABLET PO SCH (07:26)
[2020-03-28] MEDS: Isosorbide MONOnitrate (24 HR) 60 MG TAB.ER.24H PO SCH (07:27)
[2020-03-28] MEDS: lisinopriL 10 MG TABLET PO SCH (07:27)
[2020-03-28] MEDS: Metoprolol XL (24 HR) Succ 25 MG TAB.ER.24H PO SCH (07:27)
[2020-03-28] MEDS: Furosemide 20 MG TABLET PO SCH (07:27)
[2020-03-28 07:31] LABS: Magnesium 1.8 mg/dL (1.6-2.6); Phosphorous 3.2 mg/dL (2.7-4.5)
[2020-03-28 07:32] LABS: BUN/Creatinine Ratio 25 (6-26); Blood Urea Nitrogen 21 mg/dL (8-23); Calcium 8.8 mg/dL (8.6-10.3); Carbon Dioxide 25 mEq/L (23-29); Chloride 109 mEq/L (98-107); Glucose 92 mg/dL (70-105); Osmolality,Calculated 293 (280-300); Potassium 4.2 mEq/L (3.5-5.1); Sodium 140 mEq/L (136-145); eGFR For African Americans > 60 (> 60); eGFR For Non-African Americans > 60 (> 60)
[2020-03-28] MEDS: Heparin 25,000UNIT/250ML 1/2NS 25,000 UNIT/250 ML IV.SOLN IVC SCH (16:52)
[2020-03-28] MEDS ORDERED: *HR* Warfarin 3 MG TABLET PO ONE (18:00)
[2020-03-29 06:56] LABS: Hematocrit 32.3 % (35.3-44.9); Hemoglobin 10.1 g/dL (11.5-15.4); Mean Corpuscular HGB Conc 31.3 g/dL (31.6-35.5); Mean Corpuscular Volume 89.5 fL (83.0-100.0); Mean Platelet Volume 12.3 fL (9.4-12.4); Nucleated Red Blood Cells 0.4 /100 WBC (0); Platelet Count 173 K/mcL (140-400); Red Blood Count 3.61 M/mcL (3.82-4.97); Red Cell Distribution Width 16.9 % (11.5-14.5); White Blood Count 14.7 K/mcL (4.3-11.1)
[2020-03-29 06:59] LABS: INR 1.8
[2020-03-29 07:14] LABS: BUN/Creatinine Ratio 26 (6-26); Blood Urea Nitrogen 21 mg/dL (8-23); Calcium 8.6 mg/dL (8.6-10.3); Carbon Dioxide 25 mEq/L (23-29); Chloride 106 mEq/L (98-107); Glucose 96 mg/dL (70-105); Magnesium 1.6 mg/dL (1.6-2.6); Osmolality,Calculated 287 (280-300); Phosphorous 3.8 mg/dL (2.7-4.5); Potassium 4.4 mEq/L (3.5-5.1); Sodium 137 mEq/L (136-145); eGFR For African Americans > 60 (> 60); eGFR For Non-African Americans > 60 (> 60)
[2020-03-29 07:19] LABS: Lymphocytes # 3.2 K/mcL (0.6-4.6); Monocytes # 0.6 K/mcL (0.0-1.3); Neutrophils # 10.6 K/mcL (1.6-8.9); Platelet Estimate Normal (Normal); Reactive Lymphocytes Present (Not Present)
[2020-03-29] MEDS: amLODIPine 5 MG TABLET PO SCH (08:38)
[2020-03-29] MEDS: Furosemide 20 MG TABLET PO SCH (08:38)
[2020-03-29] MEDS: lisinopriL 10 MG TABLET PO SCH (08:40)
[2020-03-29] MEDS: Aspirin Enteric Coated 81 MG Tablet PO SCH (08:40)
[2020-03-29] MEDS: Isosorbide MONOnitrate (24 HR) 60 MG TAB.ER.24H PO SCH (08:40)
[2020-03-29] MEDS: Metoprolol XL (24 HR) Succ 25 MG TAB.ER.24H PO SCH (08:40)
[2020-03-29] MEDS: Insulin LISPRO 300 UNITS/3 ML VIAL SQ SCH ×4 (10:35→21:10)
[2020-03-29] MEDS ORDERED: *HR* Warfarin 2 MG TABLET PO ONE (18:00)
[2020-03-29] MEDS: Heparin 25,000UNIT/250ML 1/2NS 25,000 UNIT/250 ML IV.SOLN IVC SCH (18:23)
[2020-03-30 04:24] LABS: Basophils # 0.1 K/mcL (0.0-0.2); Basophils % 0.6 %; Eosinophils # 0.8 K/mcL (0.0-0.6); Eosinophils % 5.2 %; Hemoglobin 10.2 g/dL (11.5-15.4); Immature Granulocytes % 4.9 % (0-4); Lymphocytes # 2.7 K/mcL (0.6-4.6); Lymphocytes % 18.5 %; Mean Corpuscular HGB Conc 30.9 g/dL (31.6-35.5); Mean Corpuscular Hemoglobin 28.7 pg (28.0-33.3); Mean Platelet Volume 11.8 fL (9.4-12.4); Monocytes # 1.6 K/mcL (0.0-1.3); Monocytes % 10.9 %; Neutrophils # 8.7 K/mcL (1.6-8.9); Nucleated Red Blood Cells 0.2 /100 WBC (0); Platelet Count 153 K/mcL (140-400); Red Blood Count 3.55 M/mcL (3.82-4.97); Red Cell Distribution Width 17.2 % (11.5-14.5); Segmented Neutrophils % 59.9 %; White Blood Count 14.6 K/mcL (4.3-11.1)
[2020-03-30 04:38] LABS: Heparin anti-factor XA UFH 0.45 IU/mL (0.30-0.70)
[2020-03-30 04:39] LABS: INR 2.2; Prothrombin Time 25.2 Seconds (9.4-12.1)
[2020-03-30 04:41] LABS: Magnesium 1.8 mg/dL (1.6-2.6); Phosphorous 3.5 mg/dL (2.7-4.5)
[2020-03-30] MEDS: Heparin 25,000UNIT/250ML 1/2NS 25,000 UNIT/250 ML IV.SOLN IVC SCH (04:47)
[2020-03-30] MEDS: Furosemide 20 MG TABLET PO SCH (07:25)
[2020-03-30] MEDS: lisinopriL 10 MG TABLET PO SCH (07:25)
[2020-03-30] MEDS: amLODIPine 5 MG TABLET PO SCH (07:25)
[2020-03-30] MEDS: Aspirin Enteric Coated 81 MG Tablet PO SCH (07:25)
[2020-03-30] MEDS: Isosorbide MONOnitrate (24 HR) 60 MG TAB.ER.24H PO SCH (07:25)
[2020-03-30] MEDS: Metoprolol XL (24 HR) Succ 25 MG TAB.ER.24H PO SCH (07:26)
[2020-03-30 07:49] VITALS: BP 120/73
[2020-03-30] MEDS: Insulin LISPRO 300 UNITS/3 ML VIAL SQ SCH (08:07)
[2020-03-30] MEDS ORDERED: *HR* Warfarin 2 MG TABLET PO ONE (18:00)
== END 2020-03-30 13:01 | disposition home or self-care (01) | DRG 246 ==
LOC: EMEROOARM 22:08 → 2ANU 22:08 → SUATTDRO 03-16 01:58 → 2ANU 03-16 02:49 → SUATTDRO 03-16 14:52 → 2NNU 03-21 16:40 → 2ANU 03-26 13:04
PROVIDERS: ADMIT Family Medicine; ATTEND Internal Medicine

== ENCOUNTER 2020-09-13 23:07 | Inpatient (IN) ==
[2020-09-13] MEDS ORDERED: Isovue-370 500 ML BOTTLE IVP ONE (23:21)
[2020-09-14 00:23] LABS: Basophils % 0.3 %; Eosinophils # 0.3 K/mcL (0.0-0.6); Hematocrit 40.1 % (35.3-44.9); Hemoglobin 12.8 g/dL (11.5-15.4); Immature Granulocytes % 0.3 % (0-4); Lymphocytes # 1.8 K/mcL (0.6-4.6); Lymphocytes % 17.8 %; Mean Corpuscular HGB Conc 31.9 g/dL (31.6-35.5); Mean Corpuscular Hemoglobin 28.3 pg (28.0-33.3); Mean Corpuscular Volume 88.7 fL (83.0-100.0); Neutrophils # 6.8 K/mcL (1.6-8.9); Platelet Count 147 K/mcL (140-400); Red Blood Count 4.52 M/mcL (3.82-4.97); Segmented Neutrophils % 68.6 %
[2020-09-14 00:34] LABS: INR 1.6; Prothrombin Time 18.2 Seconds (9.4-12.1)
[2020-09-14 00:49] LABS: BUN/Creatinine Ratio 29 (6-26); Blood Urea Nitrogen 24 mg/dL (8-23); Calcium 9.4 mg/dL (8.6-10.3); Carbon Dioxide 22 mEq/L (23-29); Chloride 108 mEq/L (98-107); Glucose 111 mg/dL (70-105); Osmolality,Calculated 297 (280-300); Sodium 141 mEq/L (136-145); eGFR For African Americans > 60 (> 60); eGFR For Non-African Americans > 60 (> 60)
[2020-09-14 00:50] LABS: Troponin I < 0.03 ng/mL (< 0.04)
[2020-09-14] MEDS ORDERED: methylPREDNISolone 125 MG/2 ML VIAL IVP ONE (01:58)
[2020-09-14] MEDS ORDERED: Naloxone 0.4 MG/ML INJ IVP PRN (04:35)
[2020-09-14] MEDS ORDERED: Nitroglycerin 0.4 MG TAB.SUBL SL PRN (04:39)
[2020-09-14] MEDS ORDERED: Perflutren Lipid Microsphere 1.3 ML in 0.9 % Sodium Chloride 8.7 ML IVP PRN (04:39)
[2020-09-14] MEDS ORDERED: Ondansetron 4 MG/2 ML VIAL IVP PRN (04:39)
[2020-09-14] MEDS: Insulin LISPRO 300 UNITS/3 ML VIAL SUBQ SCH ×3 (05:50→18:29)
[2020-09-14] MEDS: *HR* Enoxaparin 60 MG/0.6 ML SYRINGE SQ SCH ×2 (05:51→18:28)
[2020-09-14] MEDS ORDERED: *HR* Atropine Sulfate 1 MG/10 ML SYRINGE ONE (07:29)
[2020-09-14] MEDS: lisinopriL 10 MG TABLET PO SCH (07:44)
[2020-09-14] MEDS: amLODIPine 5 MG TABLET PO SCH (07:44)
[2020-09-14] MEDS ORDERED: Metoprolol XL (24 HR) Succ 25 MG TAB.ER.24H PO SCH (09:00)
[2020-09-14] MEDS: Isosorbide MONOnitrate (24 HR) 30 MG TAB.ER.24H PO SCH (12:41)
[2020-09-14] MEDS ORDERED: *HR* Warfarin 1 MG TABLET PO ONE (18:00)
[2020-09-14] MEDS ORDERED: Warfarin perPT PO PRN (18:00)
[2020-09-15] MEDS: Insulin LISPRO 300 UNITS/3 ML VIAL SUBQ SCH ×5 (00:49→20:26)
[2020-09-15] MEDS ORDERED: *HR* Heparin 5,000 UNIT/ML VIAL IVP PRN ×2 (06:00)
[2020-09-15] MEDS ORDERED: Heparin 25,000UNIT/250ML 1/2NS 25,000 UNIT/250 ML IV.SOLN IVC SCH (06:00)
[2020-09-15] MEDS ORDERED: *HR* Heparin 5,000 UNIT/ML VIAL IVP ONE (06:00)
[2020-09-15 06:05] LABS: Basophils % 0.3 %; Eosinophils # 0.1 K/mcL (0.0-0.6); Eosinophils % 0.6 %; Hematocrit 34.3 % (35.3-44.9); Immature Granulocytes % 0.3 % (0-4); Lymphocytes # 2.5 K/mcL (0.6-4.6); Lymphocytes % 21.1 %; Mean Corpuscular HGB Conc 31.5 g/dL (31.6-35.5); Mean Corpuscular Hemoglobin 27.6 pg (28.0-33.3); Mean Corpuscular Volume 87.5 fL (83.0-100.0); Mean Platelet Volume 11.7 fL (9.4-12.4); Monocytes # 1.1 K/mcL (0.0-1.3); Monocytes % 9.2 %; Neutrophils # 8.1 K/mcL (1.6-8.9); Platelet Count 143 K/mcL (140-400); Red Blood Count 3.92 M/mcL (3.82-4.97); Red Cell Distribution Width 16.2 % (11.5-14.5); Segmented Neutrophils % 68.5 %; White Blood Count 11.9 K/mcL (4.3-11.1)
[2020-09-15 06:09] LABS: Hemoglobin 10.8 g/dL (11.5-15.4)
[2020-09-15 06:15] LABS: Heparin anti-factor XA UFH 0.65 IU/mL (0.30-0.70)
[2020-09-15 06:16] LABS: INR 1.5; Prothrombin Time 17.5 Seconds (9.4-12.1)
[2020-09-15 09:59] LABS: BUN/Creatinine Ratio 36 (6-26); Blood Urea Nitrogen 36 mg/dL (8-23); Carbon Dioxide 24 mEq/L (23-29); Chloride 110 mEq/L (98-107); Glucose 110 mg/dL (70-105); Osmolality,Calculated 303 (280-300); Potassium 3.4 mEq/L (3.5-5.1); Sodium 142 mEq/L (136-145); eGFR For African Americans > 60 (> 60); eGFR For Non-African Americans 54 (> 60)
[2020-09-15] MEDS: Isosorbide MONOnitrate (24 HR) 30 MG TAB.ER.24H PO SCH (10:01)
[2020-09-15] MEDS: lisinopriL 10 MG TABLET PO SCH (10:01)
[2020-09-15] MEDS: amLODIPine 5 MG TABLET PO SCH (10:01)
[2020-09-15] MEDS ORDERED: Perflutren Lipid Microsphere 1.3 ML in 0.9 % Sodium Chloride 8.7 ML IVP PRN (13:54)
[2020-09-15] MEDS ORDERED: *HR* Dextrose 50 % in Water (Vial) 50 ML VIAL IVP PRN (14:41)
[2020-09-15] MEDS ORDERED: Dextrose Gel 15 GM/37.5 ML TUBE PO PRN ×2 (14:41)
[2020-09-15] MEDS ORDERED: D5% in Water 1,000 ML IVC PRN (14:41)
[2020-09-15] MEDS: polyethylene glycoL 3350 17 GM POWD.PACK PO SCH (17:50)
[2020-09-15] MEDS: predniSONE 20 MG TABLET PO SCH (20:26)
[2020-09-16 03:14] LABS: Hemoglobin 11.9 g/dL (11.5-15.4); Mean Corpuscular HGB Conc 31.3 g/dL (31.6-35.5); Mean Corpuscular Hemoglobin 27.9 pg (28.0-33.3); Mean Platelet Volume 12.8 fL (9.4-12.4); Platelet Count 161 K/mcL (140-400); Red Blood Count 4.27 M/mcL (3.82-4.97); Red Cell Distribution Width 16.1 % (11.5-14.5); White Blood Count 9.4 K/mcL (4.3-11.1)
[2020-09-16 03:22] LABS: INR 1.4; Prothrombin Time 15.6 Seconds (9.4-12.1)
[2020-09-16 03:36] LABS: BUN/Creatinine Ratio 35 (6-26); Blood Urea Nitrogen 27 mg/dL (8-23); Calcium 9.1 mg/dL (8.6-10.3); Carbon Dioxide 24 mEq/L (23-29); Chloride 110 mEq/L (98-107); Glucose 181 mg/dL (70-105); Osmolality,Calculated 300 (280-300); Potassium 4.6 mEq/L (3.5-5.1); Sodium 140 mEq/L (136-145); eGFR For African Americans > 60 (> 60); eGFR For Non-African Americans > 60 (> 60)
[2020-09-16 03:53] LABS: Magnesium 1.5 mg/dL (1.6-2.6)
[2020-09-16 04:07] LABS: Thyroid Stimulating Hormone 1.384 mcIU/mL (0.340-5.600)
[2020-09-16] MEDS: Insulin LISPRO 300 UNITS/3 ML VIAL SUBQ SCH ×4 (07:50→20:22)
[2020-09-16] MEDS: Isosorbide MONOnitrate (24 HR) 30 MG TAB.ER.24H PO SCH (08:49)
[2020-09-16] MEDS: polyethylene glycoL 3350 17 GM POWD.PACK PO SCH (08:50)
[2020-09-16] MEDS: amLODIPine 5 MG TABLET PO SCH (08:50)
[2020-09-16] MEDS: predniSONE 20 MG TABLET PO SCH (08:50)
[2020-09-16] MEDS: lisinopriL 10 MG TABLET PO SCH (09:02)
[2020-09-16] MEDS ORDERED: NON-FORMULARY MEDICATION 1 EACH EACH (Atorvastatin Calcium 80 MG Tablet) PO SCH (11:00)
[2020-09-16] MEDS ORDERED: *HR* FentaNYL (PF) 100 MCG/2 ML VIAL ONE (11:32)
[2020-09-16] MEDS ORDERED: *HR* Midazolam HCl 2 MG/2 ML VIAL ONE ×2 (11:32→12:20)
[2020-09-16] MEDS ORDERED: 0.9 % Sodium Chloride 1,000 ML ONE (11:33)
[2020-09-16] MEDS ORDERED: 0.9 % Sodium Chloride 500 ML ONE (11:33)
[2020-09-16] MEDS ORDERED: *HR* Warfarin 0.5 MG TABLET PO ONE (18:00)
[2020-09-16] MEDS ORDERED: Warfarin perPT PO PRN (18:00)
[2020-09-16] MEDS: CeFAZolin 2 GM/120 ML BAG IVPB SCH (18:08)
[2020-09-16] MEDS: Heparin 25,000UNIT/250ML 1/2NS 25,000 UNIT/250 ML IV.SOLN IVC SCH (18:53)
[2020-09-16] MEDS ORDERED: *HR* Heparin 5,000 UNIT/ML VIAL IVP PRN ×2 (19:00)
[2020-09-16] MEDS ORDERED: *HR* Heparin 5,000 UNIT/ML VIAL IVP ONE (19:00)
[2020-09-17] MEDS: Acetaminophen 325 MG TABLET PO PRN ×3 (00:12→20:24)
[2020-09-17 01:06] LABS: Hematocrit 34.7 % (35.3-44.9); Hemoglobin 11.2 g/dL (11.5-15.4); Mean Corpuscular HGB Conc 32.3 g/dL (31.6-35.5); Mean Corpuscular Hemoglobin 28.1 pg (28.0-33.3); Mean Platelet Volume 12.2 fL (9.4-12.4); Platelet Count 157 K/mcL (140-400); Red Blood Count 3.99 M/mcL (3.82-4.97); Red Cell Distribution Width 15.9 % (11.5-14.5)
[2020-09-17 01:07] LABS: White Blood Count 14.2 K/mcL (4.3-11.1)
[2020-09-17 01:14] LABS: INR 1.4; Prothrombin Time 16.2 Seconds (9.4-12.1)
[2020-09-17 01:24] LABS: BUN/Creatinine Ratio 34 (6-26); Blood Urea Nitrogen 27 mg/dL (8-23); Calcium 9.2 mg/dL (8.6-10.3); Carbon Dioxide 24 mEq/L (23-29); Chloride 109 mEq/L (98-107); Glucose 146 mg/dL (70-105); Osmolality,Calculated 298 (280-300); Potassium 4.5 mEq/L (3.5-5.1); Sodium 140 mEq/L (136-145); eGFR For African Americans > 60 (> 60); eGFR For Non-African Americans > 60 (> 60)
[2020-09-17] MEDS: CeFAZolin 2 GM/120 ML BAG IVPB SCH (02:56)
[2020-09-17] MEDS: amLODIPine 5 MG TABLET PO SCH (08:02)
[2020-09-17] MEDS: polyethylene glycoL 3350 17 GM POWD.PACK PO SCH (08:03)
[2020-09-17] MEDS: Insulin LISPRO 300 UNITS/3 ML VIAL SUBQ SCH ×4 (08:03→20:25)
[2020-09-17] MEDS: Isosorbide MONOnitrate (24 HR) 30 MG TAB.ER.24H PO SCH (08:03)
[2020-09-17] MEDS: carvediloL 6.25 MG TABLET PO SCH ×2 (09:05→15:59)
[2020-09-17] MEDS ORDERED: *HR* Warfarin 0.5 MG TABLET PO SCH (18:00)
[2020-09-17] MEDS ORDERED: *HR* Warfarin 1 MG TABLET PO SCH (18:00)
[2020-09-18] MEDS: Acetaminophen 325 MG TABLET PO PRN ×5 (00:27→20:21)
[2020-09-18] MEDS: Heparin 25,000UNIT/250ML 1/2NS 25,000 UNIT/250 ML IV.SOLN IVC SCH (04:11)
[2020-09-18 05:57] LABS: INR 1.5; Prothrombin Time 17.2 Seconds (9.4-12.1)
[2020-09-18] MEDS: carvediloL 6.25 MG TABLET PO SCH ×2 (10:06→16:17)
[2020-09-18] MEDS: Isosorbide MONOnitrate (24 HR) 30 MG TAB.ER.24H PO SCH (10:06)
[2020-09-18] MEDS: Insulin LISPRO 300 UNITS/3 ML VIAL SUBQ SCH ×4 (10:06→20:16)
[2020-09-18] MEDS: amLODIPine 5 MG TABLET PO SCH (10:06)
[2020-09-18] MEDS: polyethylene glycoL 3350 17 GM POWD.PACK PO SCH (10:07)
[2020-09-18] MEDS ORDERED: *HR* Warfarin 0.5 MG TABLET PO SCH (18:00)
[2020-09-18] MEDS ORDERED: NON-FORMULARY MEDICATION 1 EACH EACH (Potassium Chloride [K-Tab Er] 20 MEQ Tablet.Er) PO SCH (21:00)
[2020-09-19] MEDS: Acetaminophen 325 MG TABLET PO PRN ×4 (01:28→20:11)
[2020-09-19 06:04] LABS: Hematocrit 38.1 % (35.3-44.9); Hemoglobin 12.2 g/dL (11.5-15.4); Mean Corpuscular Volume 87.4 fL (83.0-100.0); Mean Platelet Volume 12.8 fL (9.4-12.4); Platelet Count 155 K/mcL (140-400); Red Blood Count 4.36 M/mcL (3.82-4.97); White Blood Count 10.7 K/mcL (4.3-11.1)
[2020-09-19 06:11] LABS: INR 1.3; Prothrombin Time 15.1 Seconds (9.4-12.1)
[2020-09-19] MEDS: Heparin 25,000UNIT/250ML 1/2NS 25,000 UNIT/250 ML IV.SOLN IVC SCH ×2 (06:56→20:11)
[2020-09-19 06:59] LABS: BUN/Creatinine Ratio 25 (6-26); Blood Urea Nitrogen 18 mg/dL (8-23); Calcium 8.9 mg/dL (8.6-10.3); Carbon Dioxide 26 mEq/L (23-29); Chloride 107 mEq/L (98-107); Glucose 112 mg/dL (70-105); Magnesium 1.7 mg/dL (1.6-2.6); Osmolality,Calculated 291 (280-300); Potassium 3.8 mEq/L (3.5-5.1); Sodium 139 mEq/L (136-145); eGFR For African Americans > 60 (> 60); eGFR For Non-African Americans > 60 (> 60)
[2020-09-19 07:00] LABS: Troponin I < 0.03 ng/mL (< 0.04)
[2020-09-19] MEDS: Insulin LISPRO 300 UNITS/3 ML VIAL SUBQ SCH ×4 (07:59→20:13)
[2020-09-19] MEDS: Isosorbide MONOnitrate (24 HR) 30 MG TAB.ER.24H PO SCH (08:00)
[2020-09-19] MEDS: carvediloL 6.25 MG TABLET PO SCH ×2 (08:00→17:28)
[2020-09-19] MEDS: polyethylene glycoL 3350 17 GM POWD.PACK PO SCH (08:01)
[2020-09-19] MEDS: amLODIPine 5 MG TABLET PO SCH (08:01)
[2020-09-19] MEDS ORDERED: Isosorbide MONOnitrate (24 HR) 60 MG TAB.ER.24H PO SCH (09:00)
[2020-09-19] MEDS: hydroCHLOROthiazide 25 MG TABLET PO SCH ×2 (12:43→20:10)
[2020-09-19] MEDS ORDERED: *HR* Warfarin 1 MG TABLET PO ONE (18:00)
[2020-09-20] MEDS: Acetaminophen 325 MG TABLET PO PRN ×5 (03:11→20:26)
[2020-09-20 06:12] LABS: Basophils # 0.1 K/mcL (0.0-0.2); Basophils % 0.4 %; Eosinophils # 0.4 K/mcL (0.0-0.6); Eosinophils % 3.2 %; Hematocrit 35.4 % (35.3-44.9); Hemoglobin 11.2 g/dL (11.5-15.4); Immature Granulocytes % 0.9 % (0-4); Lymphocytes # 2.2 K/mcL (0.6-4.6); Lymphocytes % 19.1 %; Mean Corpuscular HGB Conc 31.6 g/dL (31.6-35.5); Mean Corpuscular Hemoglobin 28.4 pg (28.0-33.3); Mean Corpuscular Volume 89.6 fL (83.0-100.0); Mean Platelet Volume 12.3 fL (9.4-12.4); Monocytes # 1.3 K/mcL (0.0-1.3); Monocytes % 11.5 %; Neutrophils # 7.5 K/mcL (1.6-8.9); Platelet Count 143 K/mcL (140-400); Red Blood Count 3.95 M/mcL (3.82-4.97); Red Cell Distribution Width 16.5 % (11.5-14.5); Segmented Neutrophils % 64.9 %; White Blood Count 11.5 K/mcL (4.3-11.1)
[2020-09-20 06:22] LABS: INR 1.4; Prothrombin Time 15.7 Seconds (9.4-12.1)
[2020-09-20 06:32] LABS: BUN/Creatinine Ratio 27 (6-26); Blood Urea Nitrogen 24 mg/dL (8-23); Calcium 9.1 mg/dL (8.6-10.3); Carbon Dioxide 27 mEq/L (23-29); Chloride 105 mEq/L (98-107); Glucose 111 mg/dL (70-105); Osmolality,Calculated 289 (280-300); Potassium 4.2 mEq/L (3.5-5.1); Sodium 137 mEq/L (136-145); eGFR For African Americans > 60 (> 60); eGFR For Non-African Americans > 60 (> 60)
[2020-09-20] MEDS: polyethylene glycoL 3350 17 GM POWD.PACK PO SCH (06:54)
[2020-09-20] MEDS: Insulin LISPRO 300 UNITS/3 ML VIAL SUBQ SCH ×3 (07:08→17:09)
[2020-09-20] MEDS: Isosorbide MONOnitrate (24 HR) 30 MG TAB.ER.24H PO SCH (07:09)
[2020-09-20] MEDS: carvediloL 6.25 MG TABLET PO SCH ×2 (07:09→15:46)
[2020-09-20] MEDS: amLODIPine 5 MG TABLET PO SCH (07:10)
[2020-09-20] MEDS: hydroCHLOROthiazide 25 MG TABLET PO SCH ×2 (07:10→20:26)
[2020-09-20] MEDS ORDERED: *HR* Warfarin 3 MG TABLET PO ONE (18:00)
[2020-09-20] MEDS ORDERED: Warfarin 0.5 MG, Warfarin 1 MG PO ONE (18:00)
[2020-09-21] MEDS: Insulin LISPRO 300 UNITS/3 ML VIAL SUBQ SCH ×5 (00:23→21:23)
[2020-09-21] MEDS: Acetaminophen 325 MG TABLET PO PRN ×2 (01:37→08:38)
[2020-09-21 01:57] LABS: Basophils # 0.1 K/mcL (0.0-0.2); Basophils % 0.4 %; Eosinophils # 0.4 K/mcL (0.0-0.6); Eosinophils % 3.2 %; Hemoglobin 10.3 g/dL (11.5-15.4); Immature Granulocytes % 1.2 % (0-4); Lymphocytes # 2.3 K/mcL (0.6-4.6); Lymphocytes % 20.4 %; Mean Corpuscular HGB Conc 31.2 g/dL (31.6-35.5); Mean Corpuscular Hemoglobin 27.8 pg (28.0-33.3); Mean Corpuscular Volume 89.2 fL (83.0-100.0); Mean Platelet Volume 12.5 fL (9.4-12.4); Monocytes # 1.4 K/mcL (0.0-1.3); Monocytes % 12.7 %; Platelet Count 140 K/mcL (140-400); Red Cell Distribution Width 16.5 % (11.5-14.5); Segmented Neutrophils % 62.1 %; White Blood Count 11.3 K/mcL (4.3-11.1)
[2020-09-21 02:06] LABS: INR 1.5; Prothrombin Time 17.5 Seconds (9.4-12.1)
[2020-09-21 02:20] LABS: BUN/Creatinine Ratio 27 (6-26); Blood Urea Nitrogen 24 mg/dL (8-23); Calcium 8.8 mg/dL (8.6-10.3); Carbon Dioxide 26 mEq/L (23-29); Chloride 105 mEq/L (98-107); Glucose 113 mg/dL (70-105); Osmolality,Calculated 291 (280-300); Potassium 4.2 mEq/L (3.5-5.1); Sodium 138 mEq/L (136-145); eGFR For African Americans > 60 (> 60); eGFR For Non-African Americans > 60 (> 60)
[2020-09-21] MEDS: Heparin 25,000UNIT/250ML 1/2NS 25,000 UNIT/250 ML IV.SOLN IVC SCH ×2 (07:25→21:25)
[2020-09-21] MEDS: Isosorbide MONOnitrate (24 HR) 30 MG TAB.ER.24H PO SCH (08:38)
[2020-09-21] MEDS: hydroCHLOROthiazide 25 MG TABLET PO SCH ×2 (08:38→21:22)
[2020-09-21] MEDS: amLODIPine 5 MG TABLET PO SCH (08:39)
[2020-09-21] MEDS: polyethylene glycoL 3350 17 GM POWD.PACK PO SCH (08:39)
[2020-09-21] MEDS: carvediloL 6.25 MG TABLET PO SCH ×2 (08:39→17:23)
[2020-09-21] MEDS: Acetaminophen 325 MG TABLET PO SCH ×3 (12:25→21:22)
[2020-09-21] MEDS ORDERED: *HR* Warfarin 1 MG TABLET PO ONE (18:00)
[2020-09-22] MEDS: Acetaminophen 325 MG TABLET PO SCH ×6 (00:35→21:22)
[2020-09-22 06:42] LABS: Basophils # 0.1 K/mcL (0.0-0.2); Basophils % 0.4 %; Eosinophils # 0.4 K/mcL (0.0-0.6); Eosinophils % 3.4 %; Hematocrit 31.7 % (35.3-44.9); Hemoglobin 9.9 g/dL (11.5-15.4); Immature Granulocytes % 1.7 % (0-4); Lymphocytes # 2.2 K/mcL (0.6-4.6); Lymphocytes % 19.8 %; Mean Corpuscular HGB Conc 31.2 g/dL (31.6-35.5); Mean Corpuscular Hemoglobin 28.3 pg (28.0-33.3); Mean Corpuscular Volume 90.6 fL (83.0-100.0); Mean Platelet Volume 12.5 fL (9.4-12.4); Monocytes # 1.4 K/mcL (0.0-1.3); Monocytes % 12.9 %; Neutrophils # 6.9 K/mcL (1.6-8.9); Platelet Count 149 K/mcL (140-400); Red Cell Distribution Width 16.8 % (11.5-14.5); Segmented Neutrophils % 61.8 %; White Blood Count 11.1 K/mcL (4.3-11.1)
[2020-09-22 06:52] LABS: INR 1.9; Prothrombin Time 21.3 Seconds (9.4-12.1)
[2020-09-22 07:01] LABS: BUN/Creatinine Ratio 31 (6-26); Blood Urea Nitrogen 27 mg/dL (8-23); Calcium 8.8 mg/dL (8.6-10.3); Carbon Dioxide 27 mEq/L (23-29); Chloride 105 mEq/L (98-107); Glucose 111 mg/dL (70-105); Osmolality,Calculated 290 (280-300); Sodium 137 mEq/L (136-145); eGFR For African Americans > 60 (> 60); eGFR For Non-African Americans > 60 (> 60)
[2020-09-22] MEDS: Insulin LISPRO 300 UNITS/3 ML VIAL SUBQ SCH ×4 (07:39→21:23)
[2020-09-22] MEDS: polyethylene glycoL 3350 17 GM POWD.PACK PO SCH (07:42)
[2020-09-22] MEDS: Isosorbide MONOnitrate (24 HR) 30 MG TAB.ER.24H PO SCH (07:47)
[2020-09-22] MEDS: amLODIPine 5 MG TABLET PO SCH (07:47)
[2020-09-22] MEDS: hydroCHLOROthiazide 25 MG TABLET PO SCH ×2 (07:48→21:21)
[2020-09-22] MEDS: carvediloL 6.25 MG TABLET PO SCH ×2 (07:48→16:21)
[2020-09-22] MEDS ORDERED: *HR* Warfarin 1 MG TABLET PO ONE (18:00)
[2020-09-22] MEDS: Heparin 25,000UNIT/250ML 1/2NS 25,000 UNIT/250 ML IV.SOLN IVC SCH (21:23)
[2020-09-23] MEDS: Acetaminophen 325 MG TABLET PO SCH ×6 (00:31→23:53)
[2020-09-23 06:51] LABS: Basophils # 0.1 K/mcL (0.0-0.2); Basophils % 0.5 %; Eosinophils # 0.4 K/mcL (0.0-0.6); Eosinophils % 3.5 %; Hemoglobin 9.9 g/dL (11.5-15.4); Immature Granulocytes % 2.3 % (0-4); Lymphocytes # 1.8 K/mcL (0.6-4.6); Lymphocytes % 16.4 %; Mean Corpuscular HGB Conc 30.9 g/dL (31.6-35.5); Mean Corpuscular Hemoglobin 27.6 pg (28.0-33.3); Mean Corpuscular Volume 89.1 fL (83.0-100.0); Mean Platelet Volume 11.7 fL (9.4-12.4); Monocytes # 1.5 K/mcL (0.0-1.3); Monocytes % 13.9 %; Neutrophils # 6.7 K/mcL (1.6-8.9); Platelet Count 155 K/mcL (140-400); Red Blood Count 3.59 M/mcL (3.82-4.97); Red Cell Distribution Width 16.9 % (11.5-14.5); Segmented Neutrophils % 63.4 %; White Blood Count 10.6 K/mcL (4.3-11.1)
[2020-09-23 06:58] LABS: INR 2.2; Prothrombin Time 24.5 Seconds (9.4-12.1)
[2020-09-23 07:09] LABS: BUN/Creatinine Ratio 29 (6-26); Blood Urea Nitrogen 25 mg/dL (8-23); Calcium 9.4 mg/dL (8.6-10.3); Carbon Dioxide 27 mEq/L (23-29); Chloride 106 mEq/L (98-107); Glucose 105 mg/dL (70-105); Osmolality,Calculated 289 (280-300); Potassium 4.2 mEq/L (3.5-5.1); Sodium 137 mEq/L (136-145); eGFR For African Americans > 60 (> 60); eGFR For Non-African Americans > 60 (> 60)
[2020-09-23] MEDS: Insulin LISPRO 300 UNITS/3 ML VIAL SUBQ SCH ×3 (08:09→19:59)
[2020-09-23] MEDS: Isosorbide MONOnitrate (24 HR) 30 MG TAB.ER.24H PO SCH (09:16)
[2020-09-23] MEDS: carvediloL 6.25 MG TABLET PO SCH (09:17)
[2020-09-23] MEDS: polyethylene glycoL 3350 17 GM POWD.PACK PO SCH (09:17)
[2020-09-23] MEDS: hydroCHLOROthiazide 25 MG TABLET PO SCH ×2 (09:17→20:03)
[2020-09-23] MEDS: amLODIPine 5 MG TABLET PO SCH (09:17)
[2020-09-23] MEDS ORDERED: *HR* Warfarin 1 MG TABLET PO ONE (18:00)
[2020-09-24 03:32] LABS: Hematocrit 31.4 % (35.3-44.9); Hemoglobin 9.6 g/dL (11.5-15.4); Mean Corpuscular HGB Conc 30.6 g/dL (31.6-35.5); Mean Corpuscular Hemoglobin 27.8 pg (28.0-33.3); Mean Platelet Volume 11.6 fL (9.4-12.4); Platelet Count 171 K/mcL (140-400); Red Blood Count 3.45 M/mcL (3.82-4.97); White Blood Count 10.2 K/mcL (4.3-11.1)
[2020-09-24 03:39] LABS: INR 2.4; Prothrombin Time 26.7 Seconds (9.4-12.1)
[2020-09-24 03:46] LABS: BUN/Creatinine Ratio 33 (6-26); Blood Urea Nitrogen 27 mg/dL (8-23); Calcium 9.2 mg/dL (8.6-10.3); Carbon Dioxide 24 mEq/L (23-29); Chloride 105 mEq/L (98-107); Glucose 115 mg/dL (70-105); Osmolality,Calculated 290 (280-300); Potassium 4.1 mEq/L (3.5-5.1); Sodium 137 mEq/L (136-145); eGFR For African Americans > 60 (> 60); eGFR For Non-African Americans > 60 (> 60)
[2020-09-24] MEDS: Acetaminophen 325 MG TABLET PO SCH ×3 (05:02→11:53)
[2020-09-24] MEDS: Insulin LISPRO 300 UNITS/3 ML VIAL SUBQ SCH ×2 (07:13→11:53)
[2020-09-24] MEDS: polyethylene glycoL 3350 17 GM POWD.PACK PO SCH ×2 (07:14→07:46)
[2020-09-24] MEDS: amLODIPine 5 MG TABLET PO SCH (07:40)
[2020-09-24] MEDS: hydroCHLOROthiazide 25 MG TABLET PO SCH (07:41)
[2020-09-24] MEDS: carvediloL 6.25 MG TABLET PO SCH (07:41)
[2020-09-24] MEDS: Isosorbide MONOnitrate (24 HR) 30 MG TAB.ER.24H PO SCH (07:41)
[2020-09-24] MEDS ORDERED: *HR* Enoxaparin 30 MG/0.3 ML SYRINGE SQ ONE (09:53)
[2020-09-24 10:54] VITALS: BP 108/57
[2020-09-24] MEDS ORDERED: *HR* Warfarin 1 MG TABLET PO ONE (18:00)
== END 2020-09-24 14:09 | disposition home or self-care (01) | DRG 243 ==
LOC: EMEROOARM 23:07 → 2ANU 23:07 → SUATTDRO 09-14 03:50 → 2ANU 09-14 04:22 → SUATTDRO 09-15 13:00
PROVIDERS: ADMIT Internal Medicine; ATTEND Internal Medicine

== ENCOUNTER 2021-01-21 10:07 | Observation (INO) ==
[2021-01-21] MEDS ORDERED: 0.9 % Sodium Chloride 1,000 ML ONE (10:51)
[2021-01-21] MEDS ORDERED: 0.9 % Sodium Chloride 500 ML ONE (11:43)
[2021-01-21] MEDS ORDERED: *HR* Midazolam HCl 2 MG/2 ML VIAL ONE ×2 (11:43→12:19)
[2021-01-21] MEDS ORDERED: *HR* FentaNYL (PF) 100 MCG/2 ML VIAL ONE (11:43)
[2021-01-21] MEDS ORDERED: *HR* OxyCODONE Immed Rel 5 MG TABLET PO PRN (13:00)
[2021-01-21] MEDS ORDERED: Perflutren Lipid Microsphere 1.3 ML in 0.9 % Sodium Chloride 8.7 ML IVP PRN (13:03)
[2021-01-21] MEDS: *HR* Metformin 500 MG TABLET PO SCH (16:43)
[2021-01-21] MEDS: Acetaminophen 325 MG TABLET PO PRN ×2 (18:19→22:59)
[2021-01-21] MEDS: Losartan/HCTZ 50-12.5 TABLET PO SCH (20:40)
[2021-01-21] MEDS: CeFAZolin 2 GM/120 ML BAG IVPB SCH (20:45)
[2021-01-21] MEDS ORDERED: carvediloL 6.25 MG TABLET PO SCH (21:00)
[2021-01-22] MEDS: Acetaminophen 325 MG TABLET PO PRN ×4 (03:41→23:10)
[2021-01-22] MEDS: CeFAZolin 2 GM/120 ML BAG IVPB SCH (03:41)
[2021-01-22 04:56] LABS: BUN/Creatinine Ratio 24 (6-26); Blood Urea Nitrogen 22 mg/dL (8-23); Carbon Dioxide 26 mEq/L (23-29); Chloride 108 mEq/L (98-107); Sodium 141 mEq/L (136-145); eGFR For African Americans > 60 (> 60); eGFR For Non-African Americans 60 (> 60)
[2021-01-22] MEDS ORDERED: *HR* Warfarin 1 MG TABLET PO SCH (09:00)
[2021-01-22] MEDS: Losartan/HCTZ 50-12.5 TABLET PO SCH ×2 (10:07→20:27)
[2021-01-22] MEDS: Isosorbide MONOnitrate (24 HR) 30 MG TAB.ER.24H PO SCH (10:08)
[2021-01-22] MEDS: amLODIPine 5 MG TABLET PO SCH (10:08)
[2021-01-22] MEDS: *HR* Metformin 500 MG TABLET PO SCH ×2 (10:08→15:25)
[2021-01-22 13:38] LABS: INR 2.5; Prothrombin Time 28.5 Seconds (9.4-12.1)
[2021-01-23 05:08] LABS: INR 2.2; Prothrombin Time 24.6 Seconds (9.4-12.1)
[2021-01-23 08:00] VITALS: O2SAT 97
[2021-01-23] MEDS: *HR* Metformin 500 MG TABLET PO SCH (08:59)
[2021-01-23] MEDS: Losartan/HCTZ 50-12.5 TABLET PO SCH (08:59)
[2021-01-23] MEDS: Isosorbide MONOnitrate (24 HR) 30 MG TAB.ER.24H PO SCH (08:59)
[2021-01-23] MEDS: amLODIPine 5 MG TABLET PO SCH (08:59)
[2021-01-23] MEDS: Acetaminophen 325 MG TABLET PO PRN (08:59)
[2021-01-23 12:06] VITALS: BP 129/79; PULSE 71; TEMP 98.4
== END 2021-01-23 16:43 | disposition home health service (06) ==
LOC: 2ANU 10:07 → INVDIALAB 10:07 → 2ANU 14:29
PROVIDERS: ADMIT Internal Medicine Clinical Cardiac Electrophysiology; ATTEND Internal Medicine Clinical Cardiac Electrophysiology